=== PATIENT | female | born 1995 | race Caucasian/White ===

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

== ENCOUNTER 2019-01-05 22:34 | Emergency (ER) | payer BC, OTHER ==
[~2019-01-05] VITALS: Ht 157.5 cm; Wt 68.0 kg
[2019-01-05] MEDS ORDERED: LACTATED RINGERS 1,000 ML IV ONE (23:05)
[2019-01-05] MEDS ORDERED: KETOROLAC 30 MG/ML VIAL IVP ONE (23:15)
[2019-01-05] MEDS ORDERED: ONDANSETRON 4 MG/2 ML (SDV) Z0FRAN IVP ONE (23:15)
[2019-01-05 23:37] LABS: BASOPHILS % (AUTO) 0 % (0-10); EOSINOPHILS % (AUTO) 0 % (0-10); HEMATOCRIT 42 % (35-52); HEMOGLOBIN 13.8 G/DL (11.5-16.0); LYMPHOCYTES # (AUTO) 2.7 X 10^3 (1.0-4.0); LYMPHOCYTES % (AUTO) 34 % (12-44); MEAN CORPUSCULAR HEMOGLOBIN 29 PG (25-34); MEAN CORPUSCULAR HGB CONC 33 G/DL (32-36); MEAN CORPUSCULAR VOLUME 89 FL (80-99); MONOCYTES # (AUTO) 1.1 X 10^3 (0.0-1.0); MONOCYTES % (AUTO) 14 % (0-12); NEUTROPHILS # (AUTO) 4.2 X 10^3 (1.8-7.8); NEUTROPHILS % (AUTO) 52 % (42-75); PLATELET COUNT 312 10^3/uL (130-400)
[2019-01-05 23:56] LABS: ALANINE AMINOTRANSFERASE 10 U/L (0-55); ALBUMIN 4.3 GM/DL (3.2-4.5); ALKALINE PHOSPHATASE 71 U/L (40-136); BILIRUBIN,TOTAL 0.3 MG/DL (0.1-1.0); BUN/CREATININE RATIO 12; CALCIUM 9.5 MG/DL (8.5-10.1); CARBON DIOXIDE 25 MMOL/L (21-32); CHLORIDE 103 MMOL/L (98-107); CREATININE SERUM 0.81 MG/DL (0.60-1.30); GFR ESTIMATED > 60; GLUCOSE 97 MG/DL (70-105); POTASSIUM 3.5 MMOL/L (3.6-5.0); SODIUM 139 MMOL/L (135-145); TOTAL PROTEIN 8.1 GM/DL (6.4-8.2)
[2019-01-06] MEDS ORDERED: ONDA4TAB11 SL (00:09)
--- NOTE | 2019-01-06 00:10 | ED General ---
General Chief Complaint: Cough/Cold/Flu Symptoms Stated Complaint: SORE THROAT, EAR PAIN NAUSEA Nursing Triage Note: AMBULATORY TO ED ROOM 10 WITH C/O DIZZY, FULL EARS, SORE THROAT, COUGH SINCE LAST SUNDAY. SEEN PREVIOUSLY AT [facility] AND GIVEN AMOXICILLIN ANTIBIOTICS. TOOK IBUPROFEN YESTERDAY, NONE TODAY. STATES FEELS ACHY AND COLD TODAY. Nursing Sepsis Screen: Possible Sepsis Risk Source of Information: Patient Exam Limitations: No Limitations History of Present Illness Date Seen by Provider: Jan 05, 2019 Time Seen by Provider: 22:54 Initial Comments This 23-year-old young lady presents to the emergency room with complaints of flulike symptoms including myalgia, cough, sore throat, earaches, and nausea. She was seen in an outpatient clinic on the . She still is feeling ill and has fever. She is presently on amoxicillin. A flu swab was not performed in the clinic. She denies as she is currently on her menstrual cycle. Allergies and Home Medications Allergies Coded Allergies: morphine (Verified Adverse Reaction, Mild, SKIN HYPERSENSITIVITY, 08/14/11) Home Medications Cyclobenzaprine HCl 10 Mg Tablet, 10 MG PO Q8H PRN for SPASMS Prescribed by: JR SIMMONS on 07/24/15 2239 Nitrofurantoin Monohyd/M-Cryst 100 Mg Capsule, 100 MG PO BID Prescribed by: DANA TRAORE on 06/15/16 0155 Ondansetron 4 Mg Tab.rapdis, 4 MG SL Q4H PRN for NAUSEA/VOMITING Prescribed by: RONALD BAUTISTA on 01/06/19 0009 Patient Home Medication List Home Medication List Reviewed: Yes Review of Systems Review of Systems Constitutional: see HPI EENTM: see HPI Respiratory: see HPI Cardiovascular: other (tachycardia) Gastrointestinal: see HPI Genitourinary: no symptoms reported : No Musculoskeletal: see HPI Skin: no symptoms reported Psychiatric/Neurological: No Symptoms Reported Hematologic/Lymphatic: No Symptoms Reported Immunological/Allergic: no symptoms reported Past Uyuackq-Hfwjpi-Qdajyu Hx Past Med/Social Hx: Reviewed Nursing Past Med/Soc Hx Patient Social History Alcohol Use: Occasionally Uses Recreational Drug Use: No Smoking Status: Never a Smoker Recent Foreign Travel: No Contact w/Someone Who Travel: No Recent Infectious Disease Expo: No Recent Hopitalizations: No Physical Abuse: No Sexual Abuse: No Mistreated: No Fear: No Immunizations Up To Date PED Vaccines UTD: Yes Seasonal Allergies Seasonal Allergies: No Past Medical History Surgeries: Yes (SPINAL FUSION FROM T2 TO L2 FOR SCOLIOSIS) Orthopedic Respiratory: No Cardiac: No Neurological: Yes Headaches /Migraines Last Menstrual Period: Jan 02, 2019 Reproductive Disorders: No Gastrointestinal: Yes Gastroesophageal Reflux Musculoskeletal: Yes Scoliosis Endocrine: No Cancer: No Psychosocial: No Integumentary: No Blood Disorders: No Adverse Reaction/Blood Tranf: No Physical Exam Vital Signs Vital Signs - First Documented 01/05/19 22:52 Temp 100.4 Pulse 110 Resp 18 B/P (MAP) 134/95 (108) O2 Delivery Room Air Capillary Refill : Less Than 3 Seconds Height, Weight, BMI Height: 5'2" Weight: 150lbs. oz. 68.365172hi; 23.77 BMI Method:Stated General Appearance: No Apparent Distress, WD/WN HEENT: PERRL/EOMI, TMs Normal, Normal ENT Inspection, Pharyngeal Erythema Neck: Normal Inspection Respiratory: Lungs Clear, Normal Breath Sounds, No Accessory Muscle Use, No Respiratory Distress Cardiovascular: No Edema, No Murmur, Tachycardia Gastrointestinal: Normal Bowel Sounds, Non Tender, Soft Extremity: Normal Inspection, No Pedal Edema Neurologic/Psychiatric: Alert, Oriented x3, No Motor/Sensory Deficits, Normal Mood/Affect, emergency management director II-XII Norm as Tested Skin: Normal Color, Warm/Dry Progress/Results/Core Measures Suspected Sepsis Recent Fever Within 48 Hours: Yes Infection Criteria Present: Suspected New Infection New/Unexplained Altered Menta: No Sepsis Screen: Possible Sepsis Risk SIRS Temperature:100.4 Pulse: 110 Respiratory Rate: 18 Laboratory Tests 01/05/19 23:20: White Blood Count 8.0 Blood Pressure 134 /95 Mean: 108 Laboratory Tests 01/05/19 23:20: Creatinine 0.81, Platelet Count 312, Total Bilirubin 0.3 Results/Orders Lab Results Laboratory Tests Test 01/05/19 22:49 01/05/19 23:20 Range/Units Group A Streptococcus Screen NEGATIVE NEGATIVE White Blood Count 8.0 4.3-11.0 10^3/uL Red Blood Count 4.75 4.35-5.85 10^6/uL Hemoglobin 13.8 11.5-16.0 G/DL Hematocrit 42 35-52 % Mean Corpuscular Volume 89 80-99 FL Mean Corpuscular Hemoglobin 29 25-34 PG Mean Corpuscular Hemoglobin Concent 33 32-36 G/DL Red Cell Distribution Width 13.0 10.0-14.5 % Platelet Count 312 130-400 10^3/uL Mean Platelet Volume 10.0 7.4-10.4 FL Neutrophils (%) (Auto) 52 42-75 % Lymphocytes (%) (Auto) 34 12-44 % Monocytes (%) (Auto) 14 H 0-12 % Eosinophils (%) (Auto) 0 0-10 % Basophils (%) (Auto) 0 0-10 % Neutrophils # (Auto) 4.2 1.8-7.8 X 10^3 Lymphocytes # (Auto) 2.7 1.0-4.0 X 10^3 Monocytes # (Auto) 1.1 H 0.0-1.0 X 10^3 Eosinophils # (Auto) 0.0 0.0-0.3 10^3/uL Basophils # (Auto) 0.0 0.0-0.1 10^3/uL Sodium Level 139 135-145 MMOL/L Potassium Level 3.5 L 3.6-5.0 MMOL/L Chloride Level 103 98-107 MMOL/L Carbon Dioxide Level 25 21-32 MMOL/L Anion Gap 11 5-14 MMOL/L Blood Urea Nitrogen 10 7-18 MG/DL Creatinine 0.81 0.60-1.30 MG/DL Estimat Glomerular Filtration Rate > 60 BUN/Creatinine Ratio 12 Glucose Level 97 70-105 MG/DL Calcium Level 9.5 8.5-10.1 MG/DL Corrected Calcium 9.3 8.5-10.1 MG/DL Magnesium Level 2.0 1.6-2.4 MG/DL Total Bilirubin 0.3 0.1-1.0 MG/DL Aspartate Amino Transf (AST/SGOT) 16 5-34 U/L Alanine Aminotransferase (ALT/SGPT) 10 0-55 U/L Alkaline Phosphatase 71 40-136 U/L Total Protein 8.1 6.4-8.2 GM/DL Albumin 4.3 3.2-4.5 GM/DL Micro Results Microbiology 01/05/19 Influenza Types A,B Antigen (DEB) - Final, Complete My Orders Orders - RONALD PALAFOX MD Rapid Strep A Screen (01/05/19 22:54) Influenza A And B Antigens (01/05/19 22:54) Ketorolac Injection (Toradol Injection) (01/05/19 23:15) Ondansetron Injection (Zofran Injectio (01/05/19 23:15) Ed Iv/Invasive Line Start (01/05/19 23:05) Lactated Ringers (Lr 1000 Ml Iv Solution (01/05/19 23:05) Cbc With Automated Diff (01/05/19 23:33) Comprehensive Metabolic Panel (01/05/19 23:33) Magnesium (01/05/19 23:33) Vital Signs/I&O 01/05/19 01/05/19 22:52 22:52 Temp 100.4 Pulse 110 Resp 18 B/P (MAP) 134/95 (108) O2 Delivery Room Air Capillary Refill : Less Than 3 Seconds Blood Pressure Mean: 108 Progress Note : Progress Note Patient was feeling dry as she has been nauseated. She requested IV fluids and medications. A liter of LR was administered along with Zofran for nausea and Toradol for pain. She had significant improvement with these therapies. Rapid strep and influenza screens were negative. Patient declined chest x-ray for screening of pneumonia as she was already on antibiotics and had no chest discomfort. A prescription for Zofran was sent. Departure Impression Primary Impression: Flu-like symptoms Disposition: 01 HOME, SELF-CARE Condition: Improved Departure-Patient Inst. Decision time for Depature: 00:06 Referrals: [facility] (PCP) Primary Care Physician SELIN CREWS (Family) Primary Care Physician Patient Instructions: VIRAL SYNDROME Add. Discharge Instructions: Your symptoms are likely caused by a flulike virus. Complete your antibiotic as prescribed. You may use ibuprofen up to 600 mg every 6 hours as needed for fever or pain. You may additionally use Tylenol (acetaminophen) up to 1000 mg every 6 hours as needed. Drink plenty of clear liquids. Gradually advance your diet with small quantities of bland food as tolerated. You may use Zofran (ondansetron) as prescribed for nausea and vomiting. Call your doctor or return to the ER if you have worsening symptoms. All discharge instructions reviewed with patient and/or family. Voiced understanding. Scripts Ondansetron (Ondansetron Odt) 4 Mg Tab.rapdis 4 MG SL Q4H PRN for NAUSEA/VOMITING, #10 TAB Prov: RONALD PALAFOX MD 01/06/19 RONALD PALAFOX MD Jan 06, 2019 00:10
[2019-01-06 00:22] VITALS: BP 133/94
== END 2019-01-06 00:50 | disposition home or self-care (01) ==
LOC: EDUNIT# 22:34 → ER 22:38
DX: R05 Cough (principal); M79.10 Myalgia, unspecified site; G43.909 Migraine, unspecified, not intractable, without status migrainosus; K21.9 Gastro-esophageal reflux disease without esophagitis; Z88.5 Allergy status to narcotic agent; Z98.1 Arthrodesis status
CPT/HCPCS: 36415; 80053; 83735; 85025; 87430; 87804

== ENCOUNTER 2019-11-29 10:47 | Emergency (ER) | payer BC ==
[~2019-11-29 10:47] MED LIST changes: +ONDA4TAB11 SL
--- OUTSIDE RECORDS SUMMARY | 2019-11-29 10:52 | XMS REPORT ---
Author Author Sera Young Organization [facility] Address [address] [place] [address] Care Team Providers Care Jelly Maker Name Role Phone NAVI Young Unavailable PROBLEMS Type Condition ICD9-CM Code ECX69-HT Code Onset Dates Condition S tatus SNOMED Code Problem Migraines G43.909 Active 03723178 Problem Gastroesophageal reflux disease with esophagitis K 21.0 Active 047931073 Problem Chronic tension-type headache, intractable G44.221 Active 338964239 Problem Constipation K59.00 Active 1354845 8 Problem Insomnia G47.00 Active 957588008 Problem Cellulitis, unspecified cellulitis site L03.90 Active 718604170 Problem Major depressive disorder wi th single episode, remission status unspecified F32.9 Active 11666710 ALLERGIES No Information ENCOUNTERS Encounter Location Date Diagnosis [place] [address] [place] [id number] [place] [phone] Jun, [place] [address] [place] [id number] [place] [phone] May, Acute upper respiratory infe ction, unspecified J06.9 and Other viral agents as the cause of diseases classified elsewhere B97.89 [place] [address] [place] [id number] [place] [phone] May, [place] [address] [place] [id number] [place] [phone] Apr, [place] [address] [place] [id number] [place] [phone] Mar, [place] [address] [place] [id number] [place] [address] Mar, Encounter for Depo-Provera c ontraception Z30.42 [place] [id number] [facility] [id number] [address] [place] [phone] 10 Mar, 2016 [place] [address] [place] [id number] [place] [phone] Feb, [place] [address] [place] [id number] [place] [phone] Jan, Chronic tension-type headach e, intractable G44.221 and Major depressive disorder with single episode, remission status unspecified F32.9 [place] [address] [place] [id number] [place] [phone] Jan, Migraines G43.909 ; Chronic tension-type headache, intractable G44.221 ; Major depressive disorder with single episode, remission status unspecified F32.9 and Gastroesophageal reflux disease with esophagitis K21.0 [place] [address] [place] [id number] [place] [phone] Dec, Abnormal immunology findings R89.4 ; control counseling Z30.9 ; Migraines G43.909 ; Constipation K59.00 ; Cellulitis, unspecified cellulitis site L03.90 ; Encounter for immunization Z23 and Encounter for Depo-Provera contraception Z30.42 [place] [address] [place] [id number] [place] [phone] Mar, Migraines G43.909 ; Insomnia G47.00 and Constipation K59.00 [place] [id number] [place] [address] Aug, [place] [address] [place] [id number] [place] [phone] Aug, [place] [address] [place] [id number] [place] [phone] Apr, [place] [address] [place] [id number] [place] [phone] Apr, [place] [address] [place] [address] September, [facility] [address] [id number] [address] [place] [phone] September, [facility] [address] [id number] [address] [place] [phone] September, [facility] [address] [id number] [address] [place] [phone] September, [facility] [address] [id number] [address] [place] [phone] Aug, [facility] [address] [id number] [address] [place] [phone] Mar, [facility] [address] [id number] [address] [place] [phone] 17 Mar, 2012 [facility] [address] [id number] [address] [place] [phone] 15 Mar, 2012 [facility] [address] [id number] [address] [place] [phone] 15 Mar, 2012 [facility] [address] [id number] [address] [place] [phone] 15 Mar, 2012 [facility] [address] [id number] [address] [place] [phone] 15 Mar, 2012 [facility] [address] [id number] [address] [place] [phone] 10 Jun, 2009 IMMUNIZATIONS No Known Immunizations SOCIAL HISTORY Never Assessed REASON FOR VISIT PLAN OF CARE VITAL SIGNS MEDICATIONS Unknown Medications RESULTS No Results PROCEDURES Procedure Date Ordered Result Body Site TB INTRADERMAL TEST Apr 15, 2014 INSTRUCTIONS MEDICATIONS ADMINISTERED No Known Medications MEDICAL (GENERAL) HISTORY Type Description Date Medical History Insomnia Medical History Hx of strep in blood stream Surgical History Back surgery-Dr. Howard 2006
--- OUTSIDE RECORDS SUMMARY | 2019-11-29 10:52 | XMS REPORT | Clinical Summary ---
Author Author [facility] Organization [facility] Address Unknown Phone Unavailable Care Team Providers Care Signal Manager Name Role Phone Earle Ramirez MD Unavailable Self, Referral PCP Unavailable Source Comments Some departments are not documenting in the electronic medical record. If you d o not see the information that you expected, contact Release of Information in [facility] [employer] Information Management department at [phone] for further assistan ce in locating additional records.[facility] Allergies Comments Active Allergy Reactions Severity Noted Date Adhesive Tape BLISTERS 10/22/2008 Medications End Date Status Medication Sig Dispensed Refills Start Date Active clarithromycin (BIAXIN) Take 1 mg by 0 250 mg tablet mouth Twice Daily. Active fluticasone (FLOVENT HFA) Inhale 3 0 44 mcg/actuation inhaler Puffs by mouth Twice Daily. Active albuterol (PROAIR HFA) 90 Inhale 2 0 mcg/Actuation inhaler Puffs by mouth Every 6 Hours as needed for Wheezing. Active Calcium Carbonate Take 1 Cap by 0 (CALTRATE 600) 1,500 mouth Twice (600) mg Tab Daily. Active ASCORBIC ACID (VITAMIN C Take 1 Tab by 0 PO) mouth Twice Daily. Gummy Active DIMENHYDRINATE (DRAMAMINE Take by 0 PO) mouth As Needed. Active docusate (COLACE) 100 mg Take 1 Cap by 60 1 10/27/200 capsule mouth Twice 9 Daily. Active oxycodone SR (OXYCONTIN) Take 1 Tab by 30 0 10/27/200 10 mg tablet mouth Twice 9 Daily. Active oxycodone/acetaminophen Take 1-2 Tabs 100 0 10/27/200 (PERCOCET) 5/325 mg by mouth 9 tablet Every 4 Hours as needed for Pain. Active promethazine (PHENERGAN) Take 1 Tab by 30 1 12.5 mg tablet mouth Every 6 9 Hours as needed for Nausea. Active Problems Problem Noted Date Scoliosis 10/27/2008 Social History Date Tobacco Use Types Packs/Day Years Used Never Smoker Drinks/Week oz/Week Comments Alcohol Use No Sex Assigned at Date Recorded Not on file Industry Job Start Date Occupation Not on file Not on file Not on file Travel End Travel History Travel Start No recent travel history available. Last Filed Vital Signs Reading Time Taken Comments Vital Sign 104/70 10/27/2008 10:00 AM CDT Blood Pressure 109 10/27/2008 10:00 AM CDT Pulse 36.7 C (98.1 F) 10/27/2008 10:00 AM CDT Temperature - - Respiratory Rate 97% 10/27/2008 10:00 AM CDT Oxygen Saturation - - Inhaled Oxygen Concentration 48 kg (105 lb 13.1 oz) 10/23/2008 4:00 AM CDT Weight - - Height - - Body Mass Index Plan of Treatment Health Maintenance Due Date Last Done Comments HPV VACCINES (1 - 2-dose 02/16/2008 series) HIV SCREENING 02/16/2012 DTAP/TDAP VACCINES (1 - 2015 Tdap) HEPATITIS C SCREENING 2015 PHYSICAL (COMPREHENSIVE) 2015 EXAM CERVICAL CANCER SCREENING 2018 INFLUENZA VACCINE 02/05/2020 MENINGOCOCCAL VACCINE Aged Out No longer eligib le based on patient's age to ([facility]) complete this topic Results Not on filefrom Last 3 Months Advance Directives Patient Imaging Manager Explanation Type Date Recorded Advance 07/27/2015 4:04 PM Directive/DPOA
--- NOTE | 2019-11-29 12:59 | NUR ---
not in waiting room at this time
== END 2019-11-29 12:59 | disposition left against medical advice (07) ==
LOC: EDUNIT# 10:47 → ER 10:49
DX: M25.571 Pain in right ankle and joints of right foot (principal)

== ENCOUNTER 2020-10-05 13:53 | Emergency (ER) | payer BC, OTHER ==
[~2020-10-05] VITALS: Ht 157 cm; Wt 68.0 kg
--- NOTE | 2020-10-05 14:09 | ED Abdominal Pain ---
General Stated Complaint: ABD CT W/O CONTRAST Source of Information: Patient Exam Limitations: No Limitations History of Present Illness Date Seen by Provider: Oct 05, 2020 Time Seen by Provider: 14:07 Initial Comments To Er with c/o rlq pain sudden onset last night getting worse today. Had n/v today. Was at [facility] urgent care today and had outpatient CT abd/pelvis ordered but insurance required prior auth so she was referred to ER. No fevers. She states she received fluids, labs, zofran, toradol at [facility] urgent care prior to coming here. Timing/Duration: 1-2 Days Severity/Quality: Cramping Radiation: No Radiation Activities at Onset: None Associated Symptoms: Denies Symptoms Allergies and Home Medications Allergies Coded Allergies: morphine (Verified Adverse Reaction, Mild, SKIN HYPERSENSITIVITY, 08/14/11) Home Medications Cyclobenzaprine HCl 10 Mg Tablet, 10 MG PO Q8H PRN for SPASMS Prescribed by: JR SIMMONS on 07/24/152238 Nitrofurantoin Monohyd/M-Cryst 100 Mg Capsule, 100 MG PO BID Prescribed by: DANA TRAORE on 06/15/16 0155 Ondansetron 4 Mg Tab.rapdis, 4 MG SL Q4H PRN for NAUSEA/VOMITING Prescribed by: RONALD BAUTISTA on 01/06/19 0009 Patient Home Medication List Home Medication List Reviewed: Yes Review of Systems Review of Systems Constitutional: see HPI; No chills, No fever EENTM: No Symptoms Reported Respiratory: No Symptoms Reported Cardiovascular: No Symptoms Reported Gastrointestinal: See HPI, Abdominal Pain, Nausea Genitourinary: No Symptoms Reported Musculoskeletal: no symptoms reported Skin: no symptoms reported Psychiatric/Neurological: No Symptoms Reported Endocrine: No Symptoms Reported Hematologic/Lymphatic: No Symptoms Reported Past Lllopgs-Kjzpyu-Rytysz Hx Patient Social History Recent Hopitalizations: No Immunizations Up To Date PED Vaccines UTD: Yes Seasonal Allergies Seasonal Allergies: No Past Medical History Surgeries: Yes (SPINAL FUSION FROM T2 TO L2 FOR SCOLIOSIS) Orthopedic Respiratory: No Cardiac: No Neurological: Yes Headaches /Migraines Reproductive Disorders: No Gastrointestinal: Yes Gastroesophageal Reflux Musculoskeletal: Yes Scoliosis Endocrine: No Cancer: No Psychosocial: No Integumentary: No Blood Disorders: No Adverse Reaction/Blood Tranf: No Physical Exam Vital Signs Vital Signs - First Documented 10/05/20 14:01 Temp 35.7 Pulse 84 Resp 16 B/P (MAP) 125/98 (107) Pulse Ox 99 O2 Delivery Room Air Capillary Refill : Height/Weight/BMI Height: 5'2" Weight: 150lbs. oz. 68.481212zn; 23.77 BMI Method:Stated General Appearance: WD/WN, no apparent distress HEENT: PERRL/EOMI, normal ENT inspection Neck: non-tender, full range of motion Respiratory: no respiratory distress, no accessory muscle use Gastrointestinal: normal bowel sounds, soft, tenderness Extremities: normal range of motion, non-tender Neurologic/Psychiatric: alert, normal mood/affect, oriented x 3 Skin: normal color, warm/dry Progress/Results/Core Measures Results/Orders Lab Results Laboratory Tests Test 10/05/20 14:20 Range/Units Urine Color YELLOW Urine Clarity CLOUDY Urine pH 6.0 5-9 Urine Specific Man >=1.030 1.016-1.022 Urine Protein TRACE H NEGATIVE Urine Glucose (UA) NEGATIVE NEGATIVE Urine Ketones TRACE H NEGATIVE Urine Nitrite NEGATIVE NEGATIVE Urine Bilirubin NEGATIVE NEGATIVE Urine Urobilinogen 0.2 < = 1.0 MG/DL Urine Leukocyte Esterase 2+ H NEGATIVE Urine RBC (Auto) NEGATIVE NEGATIVE Urine RBC NONE /HPF Urine WBC 10-25 H /HPF Urine Squamous Epithelial Cells 10-25 H /HPF Urine Crystals PRESENT H /LPF Urine Amorphous Sediment MOD [place] URATES H /LPF Urine Bacteria TRACE /HPF Urine Casts NONE /LPF Urine Mucus MODERATE H /LPF Urine Culture Indicated YES My Orders Orders - GRUPO VIERA APRN Ct Abd/Pelvis Wo(Kidney Stone) (10/05/20 14:04) Cbc With Automated Diff (10/05/20 14:09) Ua Culture If Indicated (10/05/20 14:09) Basic Metabolic Panel (10/05/20 14:09) Ed Iv/Invasive Line Start (10/05/20 14:09) Urine Culture (10/05/20 14:20) Vital Signs/I&O 10/05/20 14:01 Temp 35.7 Pulse 84 Resp 16 B/P (MAP) 125/98 (107) Pulse Ox 99 O2 Delivery Room Air Diagnostic Imaging Diagonstic Imaging: CT Comments NAME: PUJA ANDERSEN [facility] REC#: [id number] PT STATUS: REG ER : 1995 PHYSICIAN: GRUPO VIERA ASSISTANT GM OF CONTENT & DELIVERY ADMIT DATE: 10/05/20/ER Draft Date of Exam:10/05/20 CT ABD/PELVIS WO(KIDNEY STONE) PROCEDURE: CT urinary tract, rule out kidney stone. TECHNIQUE: Multiple contiguous axial images were obtained through the abdomen and pelvis without the use of intravenous contrast. Auto Exposure Controls were utilized during the CT exam to meet ALARA standards for radiation dose reduction. INDICATION: History of nephrolithiasis, right lower quadrant pain. I have no previous for comparison. FINDINGS: Air-containing appendix laterally best seen in the coronal reconstructions that appeared normal. There is an elevated fecal load diffusely without focal impaction or small bowel dilatation. No obstruction. Small volume pelvic free fluid is in the cul-de-sac likely within normal physiologic limits of female patient of this age. Liver, gallbladder, bile ducts, spleen, adrenals and pancreas unremarkable. There is no hydroureteronephrosis and there are no radiopaque urinary tract stones. No perinephric or periureteric edema. The lung bases in the bony structures nonacute. Some mild induration of the subcutaneous fat in the bilateral buttocks which may be from percutaneous injections. There are scoliotic and postsurgical changes to the spine. Lung bases nonacute. IMPRESSION: Normal appendix. Unobstructed nonfocal urinary tracts. Small volume pelvic free fluid believed physiologic with mildly elevated colonic fecal load but no focal impaction or obstruction. Dictated on workstation # [id number] Dict: 10/05/20 1433 Trans: 10/05/20 1449 [id number] Interpreted by: SIAIAH RODRIGUEZ Electronically signed by: Departure Communication (Admissions) 7230-I received the labs from [facility], normal chemistry. White count of 6.6 with a normal differential, 71% neutrophils. Impression Primary Impression: UTI (urinary tract infection) Disposition: HOME, SELF-CARE Condition: Stable Departure-Patient Inst. Decision time for Depature: 14:59 Referrals: NO,LOCAL PHYSICIAN (PCP) Primary Care Physician BISI CHISHOLM (Family) Primary Care Physician Patient Instructions: Urinary Tract Infection, Adult (DC) Add. Discharge Instructions: 1. Return to ER for any concerns 2. Follow-up with your doctor next week 3. Scripts Sulfamethoxazole/Trimethoprim (Bactrim Ds Tablet) 1 Each Tablet 1 EACH PO BID, #10 TAB Prov: GRUPO VIERA APRN 10/05/20 Ondansetron (Ondansetron Odt) 8 Mg Tab.rapdis 8 MG PO Q6H PRN for NAUSEA/VOMITING, #10 TAB Prov: GRUPO VIERA APRN 10/05/20 GRUPO VIERA APRN Oct 05, 2020 14:09
[2020-10-05 14:24] LABS: BILIRUBIN,URINE NEGATIVE (NEGATIVE); CLARITY,URINE CLOUDY; COLOR,URINE YELLOW; GLUCOSE, URINE (UA) NEGATIVE (NEGATIVE); KETONES,URINE TRACE (NEGATIVE); LEUKOCYTE ESTERASE ,URINE 2+ (NEGATIVE); NITRITE,URINE NEGATIVE (NEGATIVE); PROTEIN,URINE TRACE (NEGATIVE)
[2020-10-05 14:39] LABS: BACTERIA,URINE TRACE /HPF
[2020-10-05 14:40] LABS: AMORPHOUS SEDIMENT,UR MOD AMOR URATES /LPF
--- NOTE | 2020-10-05 14:50 | Diagnostic Imaging Report ---
PROCEDURE: CT urinary tract, rule out kidney stone. TECHNIQUE: Multiple contiguous axial images were obtained through the abdomen and pelvis without the use of intravenous contrast. Auto Exposure Controls were utilized during the CT exam to meet ALARA standards for radiation dose reduction. INDICATION: History of nephrolithiasis, right lower quadrant pain. I have no previous for comparison. FINDINGS: Air-containing appendix laterally best seen in the coronal reconstructions that appeared normal. There is an elevated fecal load diffusely without focal impaction or small bowel dilatation. No obstruction. Small volume pelvic free fluid is in the cul-de-sac likely within normal physiologic limits of female patient of this age. Liver, gallbladder, bile ducts, spleen, adrenals and pancreas unremarkable. There is no hydroureteronephrosis and there are no radiopaque urinary tract stones. No perinephric or periureteric edema. The lung bases in the bony structures nonacute. Some mild induration of the subcutaneous fat in the bilateral buttocks which may be from percutaneous injections. There are scoliotic and postsurgical changes to the spine. Lung bases nonacute. IMPRESSION: Normal appendix. Unobstructed nonfocal urinary tracts. Small volume pelvic free fluid believed physiologic with mildly elevated colonic fecal load but no focal impaction or obstruction. Dictated by: Dictated on workstation # [id number]
[2020-10-05] MEDS ORDERED: SULF1TAB35 PO (15:00)
[2020-10-05] MEDS ORDERED: ONDA8TAB13 PO (15:00)
[2020-10-05 15:05] VITALS: BP 96/70
== END 2020-10-05 15:05 | disposition home or self-care (01) ==
LOC: EDUNIT# 13:53 → ER 13:55
DX: N39.0 Urinary tract infection, site not specified (principal)
CPT/HCPCS: 74176; 81000; 84703; 87088

== ENCOUNTER → 2021-08-29 | Outpatient (CLI) | payer OTHER ==
[~2021-08-29] MED LIST changes: +CYCL10TA25 PO; -CYCL10TA9 PO; +ONDA8TAB13 PO; +SULF1TAB38 PO
== END ==
LOC: LABNPT 16:42
PROVIDERS: ATTEND Obstetrics & Gynecology
DX: N92.6 Irregular menstruation, unspecified (principal); N89.8 Other specified noninflammatory disorders of vagina
CPT/HCPCS: 83001; 83002; 84146; 84443

== ENCOUNTER 2021-09-23 07:04 | Outpatient (CLI) | payer BC ==
[~2021-09-23] VITALS: Ht 157.5 cm; Wt 65.9 kg
[2021-09-26] MEDS ORDERED: CLOM50TA18 PO (09:13)
== END 2021-09-26 09:25 ==
LOC: PREOP 07:04
PROVIDERS: ATTEND Obstetrics & Gynecology
DX: Z01.818 Encounter for other preprocedural examination (principal); N83.209 Unspecified ovarian cyst, unspecified side; D64.9 Anemia, unspecified

== ENCOUNTER 2021-09-30 10:49 | Day surgery (SDC) | payer BC ==
[~2021-09-30] VITALS: Ht 157.5 cm; Wt 65.9 kg
[2021-09-30] VITALS (11 sets, daily range): BP systolic 91–129; BP diastolic 61–98
[~2021-09-30 10:49] MED LIST changes: +CLOM50TA18 PO
[2021-09-30] MEDS ORDERED: ceFAZolin INJECTION 1,000 MG VIAL IV ONE (11:15)
[2021-09-30] MEDS ORDERED: SEVOFLURANE (ULTANE) 15 ML INHAL SOLN ONE ×2 (11:37→14:05)
[2021-09-30] MEDS ORDERED: ONDANSETRON 4 MG/2 ML (SDV) Z0FRAN ONE ×3 (11:37→16:26)
[2021-09-30] MEDS ORDERED: fentaNYL INJ 100 MCG/2 ML AMP ONE ×2 (11:37→13:16)
[2021-09-30] MEDS ORDERED: LIDOCAINE PF 2% 5 ML (XYLOCAINE) VIAL ONE (11:37)
[2021-09-30] MEDS ORDERED: MIDAZOLAM 2 MG/2 ML (VERSED) VIAL ONE (11:37)
[2021-09-30] MEDS ORDERED: proPOfol 200 MG/20 ML (DIPRIVAN) VIAL IV ONE (11:37)
[2021-09-30 11:45] LABS: BASOPHILS # (AUTO) 0.1 10^3/uL (0.0-0.1); BASOPHILS % (AUTO) 1 % (0-10); EOSINOPHILS % (AUTO) 0 % (0-10); HEMATOCRIT 40 % (35-52); HEMOGLOBIN 13.4 g/dL (11.5-16.0); LYMPHOCYTES # (AUTO) 2.8 10^3/uL (1.0-4.0); LYMPHOCYTES % (AUTO) 29 % (12-44); MEAN CORPUSCULAR HEMOGLOBIN 30 pg (25-34); MEAN CORPUSCULAR HGB CONC 33 g/dL (32-36); MEAN CORPUSCULAR VOLUME 90 fL (80-99); MEAN PLATELET VOLUME 9.8 fL (9.0-12.2); MONOCYTES # (AUTO) 0.6 10^3/uL (0.0-1.0); MONOCYTES % (AUTO) 6 % (0-12); NEUTROPHILS # (AUTO) 6.1 10^3/uL (1.8-7.8); NEUTROPHILS % (AUTO) 64 % (42-75); PLATELET COUNT 295 10^3/uL (130-400); WHITE BLOOD COUNT 9.6 10^3/uL (4.3-11.0)
[2021-09-30] MEDS ORDERED: LIDOCAINE/EPI 2% 1:200,00 (XYLOCAINE) 20 ML VIAL ONE (12:15)
[2021-09-30] MEDS ORDERED: INDIGO CARMINE 8 MG/ML 5 ML AMP ONE (12:58)
[2021-09-30] MEDS ORDERED: ROCURONIUM 50 MG/5 ML (ZEMURON) VIAL IV ONE (14:05)
--- NOTE | 2021-09-30 14:15 | Anesthesia-General Post-Op ---
General Patient Condition Mental Status/LOC: Same as Preop Cardiovascular: Satisfactory Nausea/Vomiting: Absent Respiratory: Satisfactory Pain: Controlled Complications: Absent Post Op Complications Complications None Follow Up Care/Instructions Patient Instructions None needed. Anesthesia/Patient Condition Patient Condition Patient is doing well, no complaints, stable vital signs, no apparent adverse anesthesia problems. No complications reported per nursing. EVANGELINA RUTH CRNA September 30, 2021 14:15
[2021-09-30] MEDS: ONDANSETRON 4 MG/2 ML (SDV) Z0FRAN IVP PRN ×2 (14:34→15:17)
[2021-09-30] MEDS ORDERED: HYDROmorphone 2 MG/ML VIAL (DILAUDID) ONE (14:36)
[2021-09-30] MEDS ORDERED: OXYC-199 PO (14:39)
[2021-09-30] MEDS ORDERED: DOCU-143 PO (14:39)
[2021-09-30] MEDS ORDERED: IBUP-1780 PO (14:39)
--- NOTE | 2021-09-30 14:41 | Discharge Inst-Surgical ---
Discharge Inst-Surgical Depart Medication/Instructions New, Converted or Re-Newed RX: Transmitted to Pharmacy Consults/Follow Up Orders & Referrals Follow Up Appt: Call to make follow up appt. for patient in 1 weeks. Activity: Rest for 24 hours, than as tolerated. Wound Care: May remove Band-Aid tomorrow. Replace as desired. Keep incisions clean and dry. Wash daily with soap and water. Diet: As tolerated may shower or tub bathe as desired. No driving for 24 hours, no alcoholic beverages for 24 hours, and nothing per vagina (no tampons, douching, or intercoarse) for 2 weeks. Patient to return to the clinic as soon as possible for: Temperature greater than 101F, Severe Pain, Foul discharge from incision or vagina, Excessive Bleeding (more than a period). Activity Activity as Tolerated: No Diet Discharge Diet: No Restrictions SCOT DELGADILLO MD September 30, 2021 14:41
--- NOTE | 2021-09-30 14:44 | Progress Note-Pre Operative ---
Pre-Operative Progress Note H&P Reviewed The H&P was reviewed, patient examined and no changes noted. Date Seen by Provider: September 30, 2021 Time Seen by Provider: 12: Date H&P Reviewed: September 30, 2021 Time H&P Reviewed: 12:31 Pre-Operative Diagnosis: Abnormal uterine bleeding/menorrhagia/chronic pelvic pain SCOT DELGADILLO MD September 30, 2021 14:44
[2021-09-30] MEDS ORDERED: HYDROmorphone 2 MG/ML VIAL (DILAUDID) IV ONE (14:45)
[2021-09-30] MEDS ORDERED: KETOROLAC 30 MG/ML VIAL IVP ONE (14:45)
[2021-09-30] MEDS ORDERED: PROMETHAZINE INJ 25 MG/ML (PHENERGAN) AMP IVP ONE (14:45)
[2021-09-30] MEDS ORDERED: LACTATED RINGERS 1,000 ML IV PRN (14:45)
[2021-09-30] MEDS ORDERED: D5 LR IV SOLUTION 1,000 ML IV SCH (14:45)
[2021-09-30] MEDS ORDERED: fentaNYL INJ 100 MCG/2 ML AMP IVP ONE (14:45)
[2021-09-30] MEDS ORDERED: fentaNYL INJ 100 MCG/2 ML AMP IVP PRN (14:45)
[2021-09-30] MEDS ORDERED: oxyCODONE/APAP 5/325MG (PERCOCET 5) TABLET PO PRN (14:45)
[2021-09-30] MEDS ORDERED: ONDANSETRON 4 MG/2 ML (SDV) Z0FRAN IVP PRN (14:45)
--- NOTE | 2021-09-30 14:47 | Progress Note-Post Operative ---
Post-Operative Progess Note Surgeon (s)/Communications Designer (s) Surgeon SCOT DELGADILLO MD Communications Designer: Natalee Pre-Operative Diagnosis Abnormal uterine bleeding/menorrhagia/chronic pelvic pain Post-Operative Diagnosis Same with endometriosis and with abnormal appendix/appendicitis and with bilateral tubal obstruction Procedure & Operative Findings Date of Procedure 09/30/21 Procedure Performed/Findings D&C/laparoscopy for destruction of endometriosis implants/aspiration of ovarian cyst/laparoscopic appendectomy/chromopertubation Anesthesia Type General Estimated Blood Loss Estimated blood loss (mL): Minimal Specimens/Packing Specimens Removed Endometrial curettings/appendix SCOT DELGADILLO MD September 30, 2021 14:46
[2021-09-30] MEDS ORDERED: KETOROLAC 30 MG/ML VIAL ONE (15:21)
[2021-09-30] MEDS ORDERED: HYDROcodone/APAP 5 MG/325 MG (LORTAB) TAB ONE (15:31)
[2021-09-30] MEDS ORDERED: oxyCODONE/APAP 5/325MG (PERCOCET 5) TABLET ONE (15:34)
[2021-09-30] MEDS ORDERED: ONDANSETRON 4 MG/2 ML (SDV) Z0FRAN IVP ONE (16:30)
--- NOTE | 2021-09-30 23:43 | OPERATIVE REPORT ---
DATE OF SERVICE: 09/30/2021 PREOPERATIVE DIAGNOSES: Menorrhagia/dysfunctional uterine bleeding/chronic pelvic pain. POSTOPERATIVE DIAGNOSES: Menorrhagia/dysfunctional uterine bleeding/chronic pelvic pain with endometriosis and with appendicitis and with bilateral tubal obstruction. OPERATIVE DESCRIPTION: With the patient in the supine position under satisfactory general anesthesia, she was repositioned in the dorsal lithotomy position in the [facility] and prepped and draped in the usual fashion for abdominal and vaginal surgery. Urinary bladder was emptied with a straight catheter. A weighted speculum was placed in posterior fornix of vagina, cervix exposed and grasped anteriorly with single tooth tenaculum. The uterus was sounded to 9.5 cm with uterine sound. The cervix was then serially dilated with Dwight dilators to a #20 Dwight and then a #9 Hegar dilator was the final step in dilation. The endometrial cavity was sharply curettaged in all 4 quadrants to good uterine cry. That tissue was sent to pathology as endometrial curettings for permanent section. A uterine manipulator was placed and the bulb filled with 4 mL of air. The tenaculum and speculum were removed and the patient brought in low dorsal lithotomy position. A 5 mm incision was made in the patient's left upper quadrant. Veress needle was placed through that incision into the abdominal cavity. Correct placement confirmed with water drop test. The abdomen was insufflated with 2.4 liters of carbon dioxide. The Veress needle was removed and a 5 mm Optiview laparoscopic port was placed through that incision into the abdominal cavity. The laparoscope was introduced. The abdomen was examined. The abdominal wall was transilluminated. The patient was placed in Trendelenburg and a 12 mm port placed through an incision of that size in the inferior margin of the umbilicus and a 5 mm port superior to the pubic symphysis. Both ovaries were somewhat normal appearing but had numerous cysts. The right ovary had a large simple cyst and two other small and the left ovary had what appeared to be a corpus luteal cyst that was resolving plus 2 other small simple appearing cyst. There was an endometriosis implant in the left ovarian fossa at the junction of the uterosacral ligament with the lower uterine segment. There was endometriosis implanted in the base of the cul-de-sac and another one in the right ovarian fossa. The uterus itself looked normal. It was somewhat mottled possibly consistent with adenomyosis. Both fallopian tubes were somewhat tortuous, but otherwise normal. Both the fimbriated ends were relatively normal in appearance. The laparoscope was rotated. The appendix was identified. It was firm and indurated and injected consistent with an appendicitis. Laparoscope was brought back to the pelvis. A dilute solution of indigo carmine was instilled through the uterine manipulator to assess the patency of the tubes with a fairly vigorous pressure. No spill could be accomplished through the fallopian tubes. It appeared consistent with bilateral tubal obstruction. The endometriosis implants that were previously noted were touched with electrocautery to destroy them. The cyst on both ovaries were fenestrated with cautery allowing release of straw colored fluid from each fluid was aspirated out of the pelvis. The pelvis was now copiously irrigated and examined for hemostasis; that being complete with no remaining abnormal pathology, attention was turned to the appendix. The appendix was grasped and elevated. Again, it was quite indurated, quite irregular and quite injected. The mesoappendix was divided over to the base of the appendix with electrocautery ensuring hemostasis along the way. The Endo-HARRY was then placed across the base of appendix and fired, severing the appendix from its attachment. The appendix was placed in an Endobag and brought out through the umbilical port, sent to pathology for permanent section. The stump of the appendix was copiously irrigated and irrigant was aspirated out. The pelvis was examined final time for hemostasis and for abnormal pathology there being none and hemostasis being complete, the irrigant was aspirated out. The stump of the appendix was treated with several drops of Betadine solution. At this point, the procedure was terminated. Operative were removed under direct vision as were the ports. The abdomen was evacuated of the insufflating gas in the process of removing the ports. The skin incisions were then closed with nylon sutures. The fascia at the infraumbilical incision was closed with a [id number] suture of 2-0 Vicryl. The uterine manipulator bulb was emptied and the instrument was removed from the uterus and from the vagina. Speculum was placed in the vagina, cervix exposed for hemostasis and examined for hemostasis, which was complete. There was no bleeding from the puncture sites and no bleeding from the cervical os. Sponge and needle counts were correct. Blood loss was minimal. The patient was now uneventfully awakened from her general anesthesia and transferred to recovery room in stable condition with plans for discharge home PAR. Job ID: [id number] DocumentID: [id number] Dictated Date: 09/30/2021 15:07:44 Department Manager Date: 09/30/2021 23:42:50 Dictated By: SCOT DELGADILLO MD
== END 2021-09-30 17:05 | disposition home or self-care (01) ==
LOC: SDC 10:49
PROVIDERS: ATTEND Obstetrics & Gynecology
DX: K37 Unspecified appendicitis (principal); N80.9 Endometriosis, unspecified; N92.0 Excessive and frequent menstruation with regular cycle; K38.0 Hyperplasia of appendix; N97.1 Female infertility of tubal origin; G89.29 Other chronic pain; R10.2 Pelvic and perineal pain; N93.8 Other specified abnormal uterine and vaginal bleeding; N83.202 Unspecified ovarian cyst, left side; N83.201 Unspecified ovarian cyst, right side
CPT/HCPCS: 36415; 84703; 85025; 87081; 88304; 88305

== ENCOUNTER → 2022-01-29 | Outpatient (CLI) | payer BC ==
[~2022-01-29] MED LIST changes: +DOCU-143 PO; +IBUP-1780 PO; +OXYC-199 PO
== END ==
LOC: LAB 09:31
PROVIDERS: ATTEND Obstetrics & Gynecology
DX: Z36.89 Encounter for other specified antenatal screening (principal)
CPT/HCPCS: 36415; 84702

== ENCOUNTER 2022-03-21 12:44 | Emergency (ER) | payer BC, MEDICAID ==
[~2022-03-21] VITALS: Ht 157.5 cm; Wt 68.0 kg
[2022-03-21 12:49] VITALS: BP 136/106
[2022-03-21] MEDS ORDERED: FAMOTIDINE 20 MG (PEPCID) TABLET PO ONE (13:30)
--- NOTE | 2022-03-21 13:31 | ED Respiratory ---
General Chief Complaint: OB < 20 WEEKS Stated Complaint: COUGH|VOMITING Nursing Triage Note: PT AMB TO ED BY POV WITH C/ COUGH AND N/V X MONTH. PT REPORTS SHE HAS HAD SOME DIZZINESS OVER THE LAST COUPLE OF DAYS. PT IS 13 WKS . PT CRYING AND APPEARS VERY ANXIOUS. Source: patient Exam Limitations: no limitations History of Present Illness Date Seen by Provider: Mar 21, 2022 Time Seen by Provider: 13:18 Initial Comments 27-year-old G1, P0 presents to the emergency room with a chief complaint of persistent cough over the last month. Approximately 13 weeks . Patient states that her cough is worse in the morning and then in the evening. She states she can eat, approximately an hour later will start to have a cough and then coughed to the point of vomiting. She denies pain. She denies URI symptoms. No fevers or chills. 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 She did mention to her EVENT MARKETING COORDINATOR her cough at the last visit however they did not add any medications. She does take occasional acid campaign fundraiser Gummies. She is very tearful and upset. She states she cannot sleep at night due to the coughing. All other review of systems reviewed and negative except as stated Timing/Duration: other (constant, 1 month) Severity: moderate Associated Symptoms: cough, other (vomiting) Allergies and Home Medications Allergies Coded Allergies: morphine (Verified Adverse Reaction, Mild, SKIN HYPERSENSITIVITY, 09/26/21) Patient Home Medication List Home Medication List Reviewed: Yes Clomiphene Citrate (Clomiphene Citrate) 50 Mg Tablet, 50 MG PO DAILY, (Reported) Entered as Reported by: FAITH BARRIENTOS on 09/26/21 0913 Docusate Sodium (Colace) 100 Mg Capsule, 100 MG PO BID Prescribed by: SCOT DOTSON on 09/30/21 1439 Ibuprofen (Ibuprofen) 800 Mg Tablet, 800 MG PO Q6H PRN for PAIN Prescribed by: SCOT DOTSON on 09/30/21 1439 Review of Systems Review of Systems Constitutional: see HPI EENTM: no symptoms reported Respiratory: cough Cardiovascular: no symptoms reported Gastrointestinal: vomiting Genitourinary: no symptoms reported : Yes Expected Date of Delivery: September 26, 2022 Musculoskeletal: no symptoms reported Skin: no symptoms reported Psychiatric/Neurological: No Symptoms Reported All Other Systems Reviewed Negative Unless Noted: Yes Past [place]-Hfmiic Hx Patient Social History Tobacco Use?: No Use of E-Cig and/or Vaping dev: No Substance use?: No Alcohol Use?: No Pt feels they are or have been: No Immunizations Up To Date PED Vaccines UTD: Yes Influenza Vaccine Up-to-Date: No; Not Current First/Initial COVID19 Vaccinat: 06/11/2020 Second COVID19 Vaccination Hira: 07/02/2020 Third COVID19 Vaccination Date: 05/12/21 MODERNA COVID19 Vaccine Damper Maker: [facility] Seasonal Allergies Seasonal Allergies: Yes Past Medical History Surgery/Hospitalization HX: SPINAL FUSION, DNC, APPENDECTOMY Surgeries: Yes (SPINAL FUSION FROM T2 TO L2 FOR SCOLIOSIS) Orthopedic Respiratory: Yes (EXERCISE INDUCED) Asthma Currently Using CPAP: No Currently Using BIPAP: No Cardiac: No Neurological: Yes Headaches /Migraines Expected Date of Delivery: September 26, 2022 Reproductive Disorders: No Female Reproductive Disorders: Denies Sexually Transmitted Disease: No HIV/AIDS: No Genitourinary: No Gastrointestinal: Yes Gastroesophageal Reflux, Chronic Constipation Musculoskeletal: Yes Scoliosis Endocrine: No Cancer: No Psychosocial: No Integumentary: No Blood Disorders: No Adverse Reaction/Blood Tranf: No Physical Exam Vital Signs - First Documented 03/21/22 12:49 Temp 36.8 Pulse 106 Resp 20 B/P (MAP) 136/106 (116) Pulse Ox 98 O2 Delivery Room Air Capillary Refill : Less Than 3 Seconds Height: 5'2" Weight: 150lbs. oz. 68.823361cb; 27.00 BMI Method:Stated General Appearance: WD/WN, mild distress (tearful/anxious) HEENT: PERRL/EOMI, pharynx normal (appears well hydrated) Neck: normal inspection Respiratory: lungs clear, normal breath sounds, no respiratory distress, no accessory muscle use Cardiovascular: regular rate, rhythm Gastrointestinal: normal bowel sounds, non tender, soft Extremities: normal range of motion, non-tender, normal inspection, no pedal edema, no calf tenderness Neurologic/Psychiatric: alert, normal mood/affect, oriented x 3 Skin: normal color, warm/dry Progress/Results/Core Measures Suspected Sepsis SIRS Temperature: Pulse: 106 Respiratory Rate: 20 Blood Pressure 136 /106 Mean: 116 Results/Orders Lab Results Laboratory Tests Test 03/21/22 13:05 Range/Units My Orders Orders - BISI NETTELS MD Covid 19 Inhouse Test (03/21/22 13:03) Influenza A And B By Pcr (03/21/22 13:03) Isolation Central Supply Req (03/21/22 13:03) Heart Tones (03/21/22 13:26) Famotidine Tablet (Pepcid Tablet) (03/21/22 13:30) Vital Signs/I&O 03/21/22 12:49 Temp 36.8 Pulse 106 Resp 20 B/P (MAP) 136/106 (116) Pulse Ox 98 O2 Delivery Room Air Capillary Refill : Less Than 3 Seconds Blood Pressure Mean: 116 Progress Note : Time: 13:38 Progress Note Patient seen and evaluated, 27-year-old with persistent cough. Evaluation today includes a physical exam. She is quite tearful and upset. heart tones obtained. Considerations for other causes of cough to include pneumonia, acute pulmonary pathology such as pneumothorax, PE. These are not supported by history, physical exam or vital signs. No lab work was done at this ED visit. No clinical indications for lab work to be done. Recommendations for Pepcid tjoq-nur-yrjesnu 20 mg twice daily. Would advise her to avoid eating late at night just before bed. Close follow-up with her OB provider. Return precautions. Departure Impression Primary Impression: Cough Qualified Codes: R05.3 - Chronic cough Additional Impressions: Post-tussive emesis Qualified Codes: Z3A.13 - 13 weeks gestation of Disposition: 01 HOME, SELF-CARE Condition: Stable Departure-Patient Inst. Decision time for Depature: 13:39 Referrals: NO,LOCAL PHYSICIAN (PCP) Primary Care Physician BISI CHISHOLM (Family) Primary Care Physician SCOT DELGADILLO MD Patient Instructions: Acid Reflux (Gastroesophageal Reflux Disease) During Add. Discharge Instructions: Start taking over the counter generic pepcid, 20mg twice a day. You can take another dose tonight before bed. Drink plenty of fluids to stay well hydrated. Avoid eating a large meal 2-3 hours before bed. You can continue to supplement heartburn symptoms with over the counter TUMS. Keep your scheduled follow up with your OB provider. Return to the Emergency Department for any new, concerning or emergent complaints. Work/School Note: Work Release Form Date Seen in the Emergency Department: Mar 21, 2022 Return to Work: Mar 22, 2022 Copy Copies To 1: SCOT DELGADILLO MD, KATHRYN M MD Mar 21, 2022 13:31
== END 2022-03-21 13:59 | disposition home or self-care (01) ==
LOC: EDUNIT# 12:44 → ER 12:47
DX: O99.511 Diseases of the respiratory system complicating pregnancy, first trimester (principal); O21.9 Vomiting of pregnancy, unspecified; R05.3 Chronic cough; Z3A.13 13 weeks gestation of pregnancy; Z87.09 Personal history of other diseases of the respiratory system; Z20.822 Contact with and (suspected) exposure to COVID-19
CPT/HCPCS: 87636; 99283

== ENCOUNTER → 2022-04-24 | Outpatient (CLI) | payer MEDICAID ==
--- NOTE | 2022-04-24 20:07 | Diagnostic Imaging Report ---
INDICATION: anatomy survey TECHNIQUE: Multiple real-time grayscale images were obtained over the gravid uterus. COMPARISON: None FINDINGS: Cervix measures 3.9 cm in length. Placenta is anteriorly positioned and there is no previa, as the tip of the uterus is 4.8 cm cranial to the internal cervical os. LADAN is normal at 13.45 cm. Maternal adnexa are not well evaluated due to advanced gestational age. Following anatomy structures are visualized and normal: Stomach, four-chamber heart, left ventricular outflow tract, right ventricular outflow tract, urinary bladder three-vessel cord, umbilical cord insertion, bilateral lower extremities, kidneys, cerebellum, cisterna magna, cerebral ventricles, spine, and profile. Biometrical measurements are as follows: Biparietal 4.26 cm, age 19 weeks 0 days. Head circumference 16.45 cm, age 19 weeks 2 days. Abdominal circumference 12.60 cm, age 18 weeks 2 days. Femur length 2.74 cm, age 18 weeks 3 days. Sonographic estimate age: 18 weeks 6 days. Sonographic estimated date of delivery: 09/19/2022. Estimated Weight: 237 gm (+/- 35 gm). LMP percentile: 78%. heart rate: 152 beats per minute. number: 1 of 1. IMPRESSION: 1. Single live intrauterine has normal anatomy survey. Dictated by: Dictated on workstation # [id number]
== END ==
LOC: RAD 15:00
PROVIDERS: ATTEND Obstetrics & Gynecology
DX: Z34.82 Encounter for supervision of other normal pregnancy, second trimester (principal)
CPT/HCPCS: 76805

== ENCOUNTER 2022-06-25 13:16 | Outpatient (CLI) | payer MEDICAID ==
[~2022-06-25] VITALS: Ht 158.8 cm; Wt 74.5 kg
[2022-06-25 13:21] VITALS: BP 127/83
[2022-06-25 13:30] VITALS: BP 127/83
[2022-06-25 14:25] VITALS: BP 114/70
--- NOTE | 2022-06-25 15:06 | Antepartum Progress Note ---
Antepartum Progress Antepartum Progress Date Seen by Provider: Jun 25, 2022 Time Seen by Provider: 14:30 Subjective: 27yo G1 at 26wks presents with no movement since Sunday. She has been feeling sick all week, but had negative swabs in the clinic for flu, strep, and Covid. Nurse unable to hear FHTs via doppler here. Objective: Physical Exam General - alert and oriented, no apparent distress Abdomen - Soft, gravid, non-tender to palpation Ext - non-tender to palpation, no edema, negative Andrez's bilaterally heart tones: RN unable to obtain via doppler. Tocometer: No tocos US - verbal report: +FM FHT's 150s Anterior placenta. Breech presentation. Assessment: Sera Perez is a (27 /Para 1/0 ,Gestational Age 26(wks) with no movement since Sunday. Reassuring US here. I explained that the anterior placenta may be the cause that she doesn't feel movement very easily. We discussed kick counts and that she should not wait several days before notifying her OB if she does not feel FM. Plan: D/C home. F/U with her OB as scheduled. OTC meds for URI advised. MAN ALAS DO Jun 25, 2022 15:06
--- NOTE | 2022-06-25 15:26 | Diagnostic Imaging Report ---
US limited [id number] INDICATION: Decreased movement. COMPARISON: 04/24/2022. TECHNIQUE: Transabdominal sonographic imaging of the gravid uterus. FINDINGS: Single live intrauterine is in breech presentation. heart rate is 152 bpm. The cervix measures 3.4 cm in length. The LADAN is normal at 20.2 cm. Placenta is anterior position and there is no previa. movements are identified. IMPRESSION: Single live intrauterine . Dictated by: Dictated on workstation # [id number]
== END 2022-06-25 15:00 | disposition home or self-care (01) ==
LOC: WSo 13:16 → LDRP 13:16 → WSo 15:00
PROVIDERS: ATTEND Obstetrics & Gynecology
DX: O36.8392 Maternal care for abnormalities of the fetal heart rate or rhythm, unspecified trimester, fetus 2 (principal); Z3A.26 26 weeks gestation of pregnancy
CPT/HCPCS: 76815; 99212

== ENCOUNTER 2022-08-07 10:49 | Outpatient (CLI) | payer MEDICAID ==
[~2022-08-07] VITALS: Ht 159 cm; Wt 72.5 kg
[2022-08-07 11:18] VITALS: BP 130/83
[2022-08-07 11:18] LABS: BILIRUBIN,URINE NEGATIVE (NEGATIVE); CLARITY,URINE SL CLOUDY; COLOR,URINE YELLOW; GLUCOSE, URINE (UA) NEGATIVE (NEGATIVE); KETONES,URINE NEGATIVE (NEGATIVE); LEUKOCYTE ESTERASE ,URINE 2+ (NEGATIVE); NITRITE,URINE NEGATIVE (NEGATIVE); PH,URINE 7.5 (5-9); PROTEIN,URINE NEGATIVE (NEGATIVE)
[2022-08-07 11:35] LABS: BACTERIA,URINE TRACE /HPF; RBC,URINE RARE /HPF
--- NOTE | 2022-08-09 08:25 | Physician Query-Final Dx ---
JACEK,08/09/22 0825: Clinic Account Progress/Dx Physician Query: Please give diagnosis Please include # weeks gestation Date of Service Aug 07, 2022 at 10:49 TERESITA ROSS DO 08/09/22 1236: Clinic Account Progress/Dx DIAGNOSIS: Diagnosis 33 week IUP Vaginal discharge JACEK,MayAug 09, 2022 08:25 TERESITA ROSS DO Aug 09, 2022 12:36
== END 2022-08-07 12:05 | disposition home or self-care (01) ==
LOC: LDRP 10:49 → WSo 10:49
PROVIDERS: ATTEND Obstetrics & Gynecology
DX: O42.90 Premature rupture of membranes, unspecified as to length of time between rupture and onset of labor, unspecified weeks of gestation (principal); Z3A.00 Weeks of gestation of pregnancy not specified
CPT/HCPCS: 81000; 87088

== ENCOUNTER 2022-08-20 00:14 | Outpatient (CLI) | payer MEDICAID ==
[~2022-08-20] VITALS: Ht 157.5 cm; Wt 77.3 kg
[2022-08-20 00:30] VITALS: BP 117/85
[2022-08-20 00:31] LABS: BILIRUBIN,URINE NEGATIVE (NEGATIVE); CLARITY,URINE CLEAR; COLOR,URINE YELLOW; GLUCOSE, URINE (UA) NEGATIVE (NEGATIVE); KETONES,URINE NEGATIVE (NEGATIVE); LEUKOCYTE ESTERASE ,URINE TRACE (NEGATIVE); NITRITE,URINE NEGATIVE (NEGATIVE); PH,URINE 6.5 (5-9); PROTEIN,URINE NEGATIVE (NEGATIVE)
[2022-08-20 00:48] LABS: BACTERIA,URINE NEGATIVE /HPF; WBC,URINE RARE /HPF
[2022-08-20] MEDS ORDERED: RT-ALBUINH INH (01:00)
[2022-08-20] MEDS ORDERED: GUAI600T43 PO (01:00)
[2022-08-20] MEDS ORDERED: CETI10CA PO (01:00)
[2022-08-20] MEDS ORDERED: ONDA8TAB13 SL (01:00)
[2022-08-20] MEDS ORDERED: FAMO40TA72 PO (01:00)
[2022-08-20] MEDS ORDERED: PREN1TAB73 PO (01:00)
[2022-08-20] MEDS ORDERED: ACET-11 PO (01:00)
[2022-08-20 01:13] VITALS: BP 118/84
--- NOTE | 2022-08-20 08:33 | OB Triage Report ---
Standard Progress Note Progress Notes/Assess & Plan Date Seen by a Provider: Aug 20, 2022 Time Seen by a Provider: 00:15 Expected Date of Delivery: September 26, 2022 Gestational Age in Weeks: 34 Gestational Age in Days: 5 LMP/ANNA Comment: As above Progress/Assessment & Plan Patient presented to L&D with complaints of decreased movement, denies contractions or LOF, VSS, UA negative. Reactive NST, Category I per OB RN with no regular contractions noted. + movement noted by RN during monitoring and also noted by patient although subjectively less. Patient released from L&D and sent to ED for evaluation of URI/productive cough. Routine labor and kick count precautions. Final Diagnosis 34 weeks Not in labor Upper respiratory infection Diagnosis/Problems Diagnosis/Problems (1) 34 weeks gestation of Assessment & Plan: 34 weeks Not in labor Upper respiratory infection: released from L&D after reactive tracing. Sent to ED for evaluation of URI. GLENNY MUNOZ DO Aug 20, 2022 08:33
== END 2022-08-20 01:25 | disposition home or self-care (01) ==
LOC: WSo 00:14 → LDRP 00:16 → WSo 01:25
PROVIDERS: ATTEND Obstetrics & Gynecology
DX: O36.8130 Decreased fetal movements, third trimester, not applicable or unspecified (principal); Z3A.34 34 weeks gestation of pregnancy
CPT/HCPCS: 81000; 87088; 99213

== ENCOUNTER 2022-09-06 11:23 | Outpatient (CLI) | payer MEDICAID ==
[2022-09-06] VITALS (10 sets, daily range): BP systolic 110–128; BP diastolic 83–96
[~2022-09-06] VITALS: Ht 159 cm; Wt 77.4 kg
[~2022-09-06 11:23] MED LIST changes: +ACET-11 PO; +CETI10CA PO; +FAMO40TA72 PO; +GUAI600T43 PO; +ONDA8TAB13 SL; +PREN1TAB73 PO; +RT-ALBUINH INH
[2022-09-06 12:08] LABS: BILIRUBIN,URINE NEGATIVE (NEGATIVE); CLARITY,URINE CLEAR; COLOR,URINE YELLOW; GLUCOSE, URINE (UA) NEGATIVE (NEGATIVE); KETONES,URINE NEGATIVE (NEGATIVE); LEUKOCYTE ESTERASE ,URINE NEGATIVE (NEGATIVE); NITRITE,URINE NEGATIVE (NEGATIVE); PROTEIN,URINE NEGATIVE (NEGATIVE)
[2022-09-06 12:17] LABS: AMORPHOUS SEDIMENT,UR FEW AMOR PHOSPHATE /LPF; BACTERIA,URINE NEGATIVE /HPF; WBC,URINE RARE /HPF
--- NOTE | 2022-09-07 08:27 | Physician Query-Final Dx ---
JACEK09/07/22 0827: Clinic Account Progress/Dx Physician Query: Please give diagnosis Please include # weeks gestation Date of Service September 06, 2022 at 11:23 TERESITA ROSS DO 09/07/22 1003: Clinic Account Progress/Dx DIAGNOSIS: Diagnosis 37 week IUP Pelvic pain Irregular contractions JACEK,MaySeptember 07, 2022 08:27 TERESITA ROSS DO September 07, 2022 10:03
[2022-09-07] MEDS ORDERED: DIBU30OI TOP (23:33)
[2022-09-07] MEDS ORDERED: FERR325T24 PO (23:33)
[2022-09-07] MEDS ORDERED: DOCU100C37 PO (23:33)
[2022-09-07] MEDS ORDERED: IBUP-844 PO (23:33)
[2022-09-07] MEDS ORDERED: ACET-93 PO (23:33)
[2022-09-07] MEDS ORDERED: BENZ78AE5 TP (23:33)
== END 2022-09-06 13:42 | disposition home or self-care (01) ==
LOC: LDRP 11:23 → WSo 11:23
PROVIDERS: ATTEND Obstetrics & Gynecology
DX: O47.1 False labor at or after 37 completed weeks of gestation (principal); O99.891 Other specified diseases and conditions complicating pregnancy; Z3A.37 37 weeks gestation of pregnancy
CPT/HCPCS: 81000; 99214

== ENCOUNTER 2022-09-07 08:29 | Outpatient (CLI) | payer MEDICAID ==
[~2022-09-07] VITALS: Ht 157.5 cm; Wt 78.0 kg
[2022-09-07 08:45] VITALS: BP 133/90
[2022-09-07] MEDS ORDERED: BENZ78AE5 TP (23:33)
[2022-09-07] MEDS ORDERED: ACET-93 PO (23:33)
[2022-09-07] MEDS ORDERED: DOCU100C37 PO (23:33)
[2022-09-07] MEDS ORDERED: DIBU30OI TOP (23:33)
[2022-09-07] MEDS ORDERED: FERR325T24 PO (23:33)
[2022-09-07] MEDS ORDERED: IBUP-844 PO (23:33)
== END 2022-09-07 10:32 | disposition home or self-care (01) ==
LOC: LDRP 08:29 → WSo 08:29
PROVIDERS: ATTEND Obstetrics & Gynecology
DX: O62.9 Abnormality of forces of labor, unspecified (principal); Z3A.00 Weeks of gestation of pregnancy not specified
CPT/HCPCS: 99213

== ENCOUNTER 2022-09-07 15:45 | Inpatient (IN) | payer MEDICAID ==
[~2022-09-07] VITALS: Ht 157.5 cm; Wt 77.4 kg
[2022-09-07] VITALS (42 sets, daily range): BP systolic 108–141; BP diastolic 60–97
[2022-09-07] MEDS ORDERED: LIDOCAINE 1% INJ 20 ML VIAL IJ PRN (16:15)
[2022-09-07 16:36] LABS: BASOPHILS % (AUTO) 0 % (0-10); EOSINOPHILS % (AUTO) 0 % (0-10); HEMATOCRIT 32 % (35-52); HEMOGLOBIN 10.8 g/dL (11.5-16.0); LYMPHOCYTES # (AUTO) 2.2 10^3/uL (1.0-4.0); LYMPHOCYTES % (AUTO) 14 % (12-44); MEAN CORPUSCULAR HEMOGLOBIN 29 pg (25-34); MEAN CORPUSCULAR HGB CONC 34 g/dL (32-36); MEAN CORPUSCULAR VOLUME 86 fL (80-99); MEAN PLATELET VOLUME 9.6 fL (9.0-12.2); MONOCYTES % (AUTO) 6 % (0-12); NEUTROPHILS # (AUTO) 12.5 10^3/uL (1.8-7.8); NEUTROPHILS % (AUTO) 79 % (42-75); PLATELET COUNT 293 10^3/uL (130-400); WHITE BLOOD COUNT 15.8 10^3/uL (4.3-11.0)
[2022-09-07] MEDS: D5 LR IV SOLUTION 1,000 ML IV SCH ×2 (16:51→23:33)
[2022-09-07] MEDS ORDERED: fentaNYL 2 mcg/ml BUPIVA 0.125 100 ML ONE (16:57)
[2022-09-07] MEDS ORDERED: fentaNYL INJ 100 MCG/2 ML AMP ONE (17:21)
[2022-09-07] MEDS ORDERED: BUPIVACAINE 0.25% 10 ML (SENSORCAINE) VIAL ONE (17:21)
[2022-09-07 17:24] LABS: LYMPHOCYTES % (MANUAL) 9 %; MONOCYTES % (MANUAL) 4 %; NEUTROPHILS % (MANUAL) 87 %; RBC MORPH NORMAL
[2022-09-07] MEDS ORDERED: diphenhydrAMINE 50 MG/ML INJ (BENADRYL) IV PRN (18:00)
[2022-09-07] MEDS ORDERED: NALOXONE 0.4 MG/ML 1 ML (NARCAN) VIAL IV PRN ×2 (18:00→23:30)
[2022-09-07] MEDS ORDERED: LACTATED RINGERS 1,000 ML IV SCH (18:00)
[2022-09-07] MEDS ORDERED: ONDANSETRON 4 MG/2 ML (SDV) Z0FRAN IV PRN (18:00)
[2022-09-07] MEDS ORDERED: fentaNYL 2 mcg/ml BUPIVA 0.125 100 ML EPI SCH (18:00)
[2022-09-07] MEDS ORDERED: ACETAMINOPHEN 500 MG TAB (TYLENOL) PO ONE (21:00)
[2022-09-07] MEDS ORDERED: ACETAMINOPHEN 500 MG TAB (TYLENOL) ONE (21:19)
[2022-09-07] MEDS ORDERED: CATHETER FLUSH 10 ML SYR IV SCH (22:00)
[2022-09-07] MEDS ORDERED: OXYTOCIN PRE-MIX DRIP 500 ML IV ONE ×2 (22:12→23:31)
[2022-09-07] MEDS ORDERED: LIDOCAINE 1% INJ 10 ML VIAL ONE (22:53)
[2022-09-07] MEDS: OXYTOCIN PRE-MIX DRIP 500 ML IV SCH ×2 (23:00→23:34)
[2022-09-07] MEDS ORDERED: KETOROLAC 30 MG/ML VIAL ONE (23:07)
--- NOTE | 2022-09-07 23:27 | History & Physical-OB ---
OB - Chief Complaint & HPI Date/Time Date of Admission: Date of Admission: September 07, 2022 at 16:01 Date seen by a Provider: September 07, 2022 Time Seen by a Provider: 10:30 Chief Complaint/History OB-Reason for Admission/Chief: Onset of Labor Hx : 1 Hx Para: 0 Expected Date of Delivery: September 26, 2022 Gestational Age in Weeks: 37 Gestational Age in Days: 2 Admission Nurse Assessment Rev: Yes History of Labs A pos antibody neg RI RPR NR HBsAg NR HIV NR GC neg GBS neg Allergies and Home Medications Allergies Coded Allergies: morphine (Verified Adverse Reaction, Mild, SKIN HYPERSENSITIVITY, 09/26/21) Patient Home Medication List Home Medication List Reviewed: Yes Albuterol Sulfate (Ventolin Hfa) 1 Puff Puff, 2 PUFF INH Q6H PRN for SHORTNESS OF BREATH, (Reported) Entered as Reported by: BRETT TOBAR on 08/20/2299 Cetirizine HCl (Zyrtec) 10 Mg Capsule, 1 TAB PO DAILY, (Reported) Entered as Reported by: BRETT TOBAR on 08/20/2299 Famotidine (Pepcid) 40 Mg Tablet, 40 MG PO DAILY, (Reported) Entered as Reported by: BRETT TOBAR on 08/20/2299 Pnv95/Ferrous Fumarate/FA ( Tablet) 28 Mg Iron-800 Mcg Tablet, 1 EACH PO DAILY, (Reported) Entered as Reported by: BRETT TOBAR on 08/20/2299 Discontinued Medications Acetaminophen with Codeine (Acetaminophen-Cod #3 Tablet) 300 Mg-30 Mg Tablet, 1 EACH PO PRN, (Reported) Discontinued Reason: No Longer Taking Entered as Reported by: BRETT TOBAR on 08/20/2299 Guaifenesin (Mucinex) Unknown Strength Tab.er.12h, Unknown Dose PO PRN, (Reported) Discontinued Reason: No Longer Taking Entered as Reported by: BRETT TOBAR on 08/20/2299 Ondansetron (Ondansetron Odt) 8 Mg Tab.rapdis, 8 MG SL Q6H PRN for NAUSEA/VOMITING, (Reported) Discontinued Reason: No Longer Taking Entered as Reported by: BRETT TOBAR on 08/20/2299 OB - History Hx of Present Care: Yes Ultrasounds: Normal mid trimester US Obstetrical Complications: None Medical Complications: None Delivery History Hx Blood Disorders: No Adverse Rxn to Tranfusion: No Patient Past Medical History nc Social History/Family History 2nd Hand Smoke Exposure: No Immunizations First/Initial COVID19 Vaccine: 06/11/2020 Second COVID19 Vaccination: 07/02/2020 Third COVID19 Vaccination Date: 05/12/21 [facility] OB - Admission Exam Physical Exam Vitals: Vital Signs 09/07/22 09/07/22 19:49 21:33 Temp 36.5 Pulse 122 Resp 20 B/P (MAP) 128/80 (96) Pulse Ox 96 O2 Delivery Room Air HEENT: NCAT Heart: Rhythm Normal Lungs: Clear Abdomen: Gravid Extremities: Normal Reflexes: Normal Cervical Dilatation: 3cm Effacement: 75% Station: -1 Membranes: Intact Heart Rate: 130's Accelerations: Accelerations Present Decelerations: No Decelerations Short Term Variability: Present Cop Examiner Variability: Average (6-25) Contractions on Admission: < 5 Minutes Apart Intensity: Mild Labs Laboratory Tests Test 09/07/22 16:25 09/07/22 16:45 Range/Units White Blood Count 15.8 H 4.3-11.0 10^3/uL Red Blood Count 3.73 L 3.80-5.11 10^6/uL Hemoglobin 10.8 L 11.5-16.0 g/dL Hematocrit 32 L 35-52 % Mean Corpuscular Volume 86 80-99 fL Mean Corpuscular Hemoglobin 29 25-34 pg Mean Corpuscular Hemoglobin Concent 34 32-36 g/dL Red Cell Distribution Width 13.5 10.0-14.5 % Platelet Count 293 130-400 10^3/uL Mean Platelet Volume 9.6 9.0-12.2 fL Immature Granulocyte % (Auto) 0 % Neutrophils (%) (Auto) 79 H 42-75 % Lymphocytes (%) (Auto) 14 12-44 % Monocytes (%) (Auto) 6 0-12 % Eosinophils (%) (Auto) 0 0-10 % Basophils (%) (Auto) 0 0-10 % Neutrophils # (Auto) 12.5 H 1.8-7.8 10^3/uL Lymphocytes # (Auto) 2.2 1.0-4.0 10^3/uL Monocytes # (Auto) 1.0 0.0-1.0 10^3/uL Eosinophils # (Auto) 0.0 0.0-0.3 10^3/uL Basophils # (Auto) 0.0 0.0-0.1 10^3/uL Immature Granulocyte # (Auto) 0.1 0.0-0.1 10^3/uL Neutrophils % (Manual) 87 % Lymphocytes % (Manual) 9 % Monocytes % (Manual) 4 % Blood Morphology Comment NORMAL OB - Assessment/Plan/Diagnosis Assessment Assessment: active labor Admission Dx 27 yo @ 37 weeks Active labor GBS neg Admission Status: Inpatient Order (span 2 midnights) Reason for Inpatient Admission: active labor at term Plan Plan: Expectant Management TERESITA ROSS DO September 07, 2022 23:27
[2022-09-07] MEDS: LIDOCAINE 1% INJ 10 ML VIAL INJ PRN ×2 (23:29→23:30)
--- NOTE | 2022-09-07 23:29 | OB Labor & Delivery Record ---
L&D History Date of Service Date of Service: September 07, 2022 History Expected Date of Delivery: September 26, 2022 Gestational Age in Weeks: 37 Hx : 1 Hx Para: 0 Complications Events: Routine care Operative Indications (Cesarea: N/A-Vaginal Delivery Intrapartal Events: None L&D Stage1 Stage One Onset of Labor - Date: September 07, 2022 Monitors and Tracing Monitor Mode: External Heart Rate: 145 Station: 0 Vital Signs VS - Last 72 Hours, by Label 09/07/22 09/07/22 09/07/22 09/07/22 15:37 16:09 17:19 17:29 Temp 37.2 37.2 Pulse 118 118 131 137 Resp B/P (MAP) 120/79 (93) 113/73 (86) 120/78 (92) Pulse Ox 99 100 99 O2 Delivery Room Air Room Air Room Air Room Air 09/07/22 09/07/22 09/07/22 09/07/22 17:31 17:36 17:41 17:44 Pulse 140 136 136 136 Resp B/P (MAP) 131/89 (103) 123/75 (91) 125/81 (96) 121/79 (93) Pulse Ox 99 99 99 98 O2 Delivery Room Air Room Air Room Air Room Air 09/07/22 09/07/22 09/07/22 09/07/22 17:47 17:48 17:51 17:53 Pulse 131 125 127 123 Resp B/P (MAP) 116/68 (84) 116/72 (87) 120/62 (81) 114/64 (81) Pulse Ox 98 98 100 100 O2 Delivery Room Air Room Air Room Air Room Air 09/07/22 09/07/22 09/07/22 09/07/22 18:03 18:10 18:14 18:19 Pulse 117 119 115 118 Resp B/P (MAP) 118/74 (89) 123/80 (94) 119/75 (90) 116/75 (89) Pulse Ox 92 98 100 100 O2 Delivery Room Air Room Air Room Air Room Air 09/07/22 09/07/22 09/07/22 09/07/22 18:25 18:29 18:34 18:39 Pulse 118 116 117 119 Resp 22 22 22 22 B/P (MAP) 115/77 (90) 117/75 (89) 121/76 (91) 113/72 (86) Pulse Ox 100 100 100 100 O2 Delivery Room Air Room Air Room Air Room Air 09/07/22 09/07/22 09/07/22 09/07/22 18:44 19:05 19:18 19:33 Pulse 118 119 130 123 Resp B/P (MAP) 114/72 (86) 122/73 (89) 141/77 (98) 131/72 (91) Pulse Ox 98 98 98 96 O2 Delivery Room Air Room Air Room Air Room Air 09/07/22 09/07/22 09/07/22 09/07/22 19:49 20:04 20:19 20:34 Temp 36.5 Pulse 116 122 118 114 Resp 20 B/P (MAP) 128/75 (92) 123/76 (92) 117/76 (90) 113/83 (93) Pulse Ox 96 O2 Delivery Room Air 09/07/22 09/07/22 09/07/22 09/07/22 20:49 21:03 21:20 21:33 Pulse 114 120 121 122 B/P (MAP) 109/79 (89) 131/80 (97) 132/88 (103) 128/80 (96) Rupture of Membranes Spontaneous Ruture of Membrane: No Amniotic Membrane Rupture Time: 1919 Amniotic Membrane Fluid Desc.: Clear Induction/Anesthesia Epidural Cath Placement - Time: 1746 Progress/Notes Patient admitted and had epidural placed which did not really improve pain, AROM performed shortly after that, and she progressed rapidly with no further augmentation to complete and + 2 station. L&D Stage2 Stage Two Stage II Date: September 07, 2022 Monitors and Tracing Monitor Mode: External Heart Rate: 145 Monitor Accelerations: Uniform Monitor Decelerations: Variable Jail Variability: Average (6-10) Short Term Variability: Present Position: Right Occiput Anterior Presentation: Vertex Cord Descript/Complications Cord Vessel Description: 3 Vessels Delivery Type Infant Delivery Method: Spontaneous Vaginal Anterior Shoulder: Left Episiotomy/Perineal Laceration Laceraction(s)/Extensions: Yes Episiotomy Description: Periurethral Extnsion/lac, Perineal Extension/lac, 2nd degree (perineal laceration repaired using 3-0 and 2-0 vicryl in usual fashion. Clitoral laceration repaired using 3-0 rapide.) Condition of Delivery 1 minute Comment: 8 5 minute Comment: 9 Notes Live male infant weight 7lbs 4 oz Condition of Condition of Infant: Living Exam: No Observed Abnormalities Resuscitation Resuscitation: N/A - Spontaneous Resp L&D Stage3 Stage Three Stage III Date: September 07, 2022 Pictocin Pitocin Administration Comment: 30 mu wide open after delivery of placenta Placenta Delivery Placenta Delivery: Spontaneous Delivery Summary Summary Estimated blood loss (mL): 300 Attending at delivery: Teresita Ross DO Condition of Delivery Examined: Cervix Examined, Uterus Explored Post Hemorrhage: No Condition of Mother stable Condition of Infant (s) stable TERESITA ROSS DO September 07, 2022 23:29
[2022-09-07] MEDS ORDERED: WITCH HAZEL(TUCKS) 40 EA JAR TOP PRN (23:30)
[2022-09-07] MEDS ORDERED: MEASLES,MUMPS,RUBELLA 1 EA INJ SQ ONE (23:30)
[2022-09-07] MEDS ORDERED: DIBUCAINE 1% OINTMENT 28 GM TUBE TOP PRN (23:30)
[2022-09-07] MEDS ORDERED: BENZOCAINE/MENTHOL (DERMOPLAST) 56 ML CAN TP PRN (23:30)
[2022-09-07] MEDS ORDERED: TETANUS,DIPTH,PERTUSS P/F (BOOSTRIX) 0.5 ML VIAL IM ONE (23:30)
[2022-09-07] MEDS ORDERED: LIDOCAINE 1% INJ 10 ML VIAL INJ ONE (23:30)
[2022-09-07] MEDS ORDERED: ACETAMINOPHEN 500 MG TAB (TYLENOL) PO SCH (23:30)
[2022-09-07] MEDS ORDERED: KETOROLAC 30 MG/ML VIAL IVP ONE (23:30)
--- NOTE | 2022-09-07 23:32 | Discharge Inst-Women's Service ---
Discharge Inst-Women's Serv Depart Medication/Instructions New, Converted or Re-Newed RX: Transmitted to Pharmacy Final Diagnosis PPD 2 NVD Problems Reviewed?: Yes Consults/Follow Up Additional Follow Up: Yes Orders/Referrals Dr. Ross in 6 weeks Activity Activity: Activity as Tolerated Driving Instructions: No Driving for 1 Week NO SMOKING: NO SMOKING Nothing Inside Vagina: No Douching, No [place], No Tampons Diet Discharge Diet: No Restrictions Symptoms to Report to : Bleeding Excessive, Pain Increased, Fever Over 101 Degrees F, Vaginal Bleeding Increase, Questions/Concerns For Any Problems or Questions: Contact Your Physician TERESITA ROSS DO September 07, 2022 23:32
[2022-09-07] MEDS ORDERED: DIBU30OI TOP (23:33)
[2022-09-07] MEDS ORDERED: IBUP-844 PO (23:33)
[2022-09-07] MEDS ORDERED: DOCU100C37 PO (23:33)
[2022-09-07] MEDS ORDERED: FERR325T24 PO (23:33)
[2022-09-07] MEDS ORDERED: ACET-93 PO (23:33)
[2022-09-07] MEDS ORDERED: BENZ78AE5 TP (23:33)
[2022-09-08] VITALS (10 sets, daily range): BP systolic 100–127; BP diastolic 63–85
[2022-09-08] MEDS: ACETAMINOPHEN 500 MG TAB (TYLENOL) PO SCH ×4 (03:01→21:30)
[2022-09-08] MEDS: IBUPROFEN 600 MG (MOTRIN) TAB PO SCH ×4 (05:10→23:20)
[2022-09-08 05:39] LABS: BASOPHILS % (AUTO) 0 % (0-10); EOSINOPHILS % (AUTO) 0 % (0-10); HEMATOCRIT 24 % (35-52); HEMOGLOBIN 8.3 g/dL (11.5-16.0); LYMPHOCYTES # (AUTO) 1.9 10^3/uL (1.0-4.0); LYMPHOCYTES % (AUTO) 10 % (12-44); MEAN CORPUSCULAR HEMOGLOBIN 30 pg (25-34); MEAN CORPUSCULAR HGB CONC 34 g/dL (32-36); MEAN CORPUSCULAR VOLUME 86 fL (80-99); MEAN PLATELET VOLUME 9.5 fL (9.0-12.2); MONOCYTES # (AUTO) 1.4 10^3/uL (0.0-1.0); MONOCYTES % (AUTO) 8 % (0-12); NEUTROPHILS # (AUTO) 14.9 10^3/uL (1.8-7.8); NEUTROPHILS % (AUTO) 81 % (42-75); PLATELET COUNT 263 10^3/uL (130-400); WHITE BLOOD COUNT 18.4 10^3/uL (4.3-11.0)
[2022-09-08] MEDS ORDERED: CATHETER FLUSH 10 ML SYR IV SCH (06:00)
[2022-09-08] MEDS: FERROUS SULF 325 MG (IRON) TAB PO SCH (08:16)
[2022-09-08] MEDS: DOCUSATE SODIUM 100 MG (COLACE) CAP PO SCH ×2 (08:16→21:30)
[2022-09-08] MEDS: PRENATAL VITAMIN 1 EA TAB PO SCH (08:16)
--- NOTE | 2022-09-08 09:04 | Anesthesia-Regional Post-Op ---
Regional Patient Condition Mental Status: Alert, Oriented x3 Circulation: Same as Pre-Op Headache: Absent Sensation: Full Recovery Motor Block: Absent Post Op Complications Complications None Follow Up Care/Instructions Patient Instructions None needed. Anesthesia/Patient Condition Patient is doing well, no complaints, stable vital signs, no apparent adverse anesthesia problems. No complications reported per nursing. KORI LEONARD CRNA September 08, 2022 09:04
[2022-09-09 03:46] VITALS: BP 128/90
[2022-09-09] MEDS: ACETAMINOPHEN 500 MG TAB (TYLENOL) PO SCH ×2 (03:47→10:30)
[2022-09-09] MEDS: IBUPROFEN 600 MG (MOTRIN) TAB PO SCH (05:30)
[2022-09-09] MEDS: FERROUS SULF 325 MG (IRON) TAB PO SCH (10:30)
[2022-09-09] MEDS: PRENATAL VITAMIN 1 EA TAB PO SCH (10:30)
[2022-09-09] MEDS: DOCUSATE SODIUM 100 MG (COLACE) CAP PO SCH (10:30)
[2022-09-09 10:32] VITALS: BP 115/74
--- NOTE | 2022-09-09 11:21 | Postpartum Progress Note ---
Note Note Day # [] Subjective: Patient is without complaints. Ambulating, voiding. Tolerating a regular diet without nausea or vomiting. Normal lochia. Pain is well controlled with oral pain medications.Breast feeding going well. Objective: Physical Exam: General - Alert and oriented, no apparent distress Breast symmetrical no erythema or engorgement Abdomen - Soft, appropriately tender to palpation, non-distended, fundus firm at umbilicus Lochia minimal Extremities - no edema, negative Andrez's bilaterally Assessment: post- day #1, status post vaginal delivery. Recovering well, hemodynamically stable Plan: Routine care. Encourage breast feeding. Encourage ambulation. Ferrous sulfate supplementation. Plan for discharge Vitals - Labs Vital Signs - I&O Vital Signs Date Time Temp Pulse Resp B/P (MAP) Pulse Ox O2 Delivery O2 Flow Rate FiO2 09/09/22 10:32 36.4 92 18 115/74 (88) Room Air 09/09/22 03:46 36.8 90 18 128/90 (103) 96 Room Air 09/08/22 22:01 37.1 99 20 127/85 (99) 98 Room Air 09/08/22 15:31 36.0 112 18 123/83 (96) 98 Room Air 09/08/22 12:30 35.9 83 18 113/78 (90) 97 Room Air RAJAT DIANA DO September 09, 2022 11:21
== END 2022-09-09 12:25 | disposition home or self-care (01) | DRG 807 ==
LOC: WSo 15:45 → LDRP 15:46 → WSo 16:01 → LDRP 16:01
PROVIDERS: ADMIT Obstetrics & Gynecology; ATTEND Obstetrics & Gynecology
PROC: 10E0XZZ Delivery of Products of Conception, External Approach (ICD-10-PCS; principal; 2022-09-07)
PROC: 0KQM0ZZ Repair Perineum Muscle, Open Approach (ICD-10-PCS; 2022-09-07)
PROC: 10907ZC Drainage of Amniotic Fluid, Therapeutic from Products of Conception, Via Natural or Artificial Opening (ICD-10-PCS; 2022-09-07)
PROC: 0UQMXZZ Repair Vulva, External Approach (ICD-10-PCS; 2022-09-07)
DX: O70.1 Second degree perineal laceration during delivery (principal); Z37.0 Single live birth; Z3A.37 37 weeks gestation of pregnancy; O71.82 Other specified trauma to perineum and vulva
CPT/HCPCS: 36415; 85007; 85025; 85027; 86780; 86850; 86900; 86901

== ENCOUNTER 2022-09-27 11:45 | Inpatient (IN) | payer MEDICAID ==
[2022-09-27] VITALS (8 sets, daily range): BP systolic 92–112; BP diastolic 56–77
[~2022-09-27] VITALS: Ht 157 cm; Wt 68.0 kg
[~2022-09-27 11:45] MED LIST changes: +ACET-93 PO; +BENZ78AE5 TP; +DIBU30OI TOP; +DOCU100C37 PO; +FERR325T24 PO; +IBUP-844 PO
[2022-09-27] MEDS ORDERED: PIPERACILLIN SODIUM/TAZOBACTAM 4.5 GM in NS (IVPB) 100 ML IV ONE (12:15)
[2022-09-27] MEDS ORDERED: NS IV 1000 ML 1,000 ML IV SCH (12:15)
--- NOTE | 2022-09-27 12:15 | ED General ---
General Chief Complaint: Post OP Complications/Pain Stated Complaint: FEVER | LT SIDE PAIN | ABD PAIN | VOMITING Nursing Triage Note: ARRIVED VIA AMB TO ROOM 10. 3 WEEKS POST OP. GREEN VAGINAL DISCHARGE AND PAIN LEFT BREAST. FEVER OF 102 LAST NIGHT THAT CONTINUED THIS AM. TOOK MOTRIN AT APPX 1100 TODAY. VAGINAL DELIVERY. PT COMPLAINS OF LOWER ABD PAIN, HEAD ACHE AND LEFT BREAST PAIN. Source of Information: Patient, Family (mother) Exam Limitations: No Limitations History of Present Illness Date Seen by Provider: September 27, 2022 Time Seen by Provider: 12:00 Initial Comments 27-year-old female G1, P1 who is approximately 3 weeks presents emergency department today for vaginal discharge, left breast pain. Vaginal discharge started about a week ago. She tells her OBs office and had not yet received a call back. The mother checked her heart rate and was in the 130s which prompted her emergency department visit. She has had some nausea and vomited once this morning. She also complains of some bilateral lower abdominal tenderness, mostly in her pelvic region. Lastly, couple days ago she developed a hard lump in her left outer breast that is now become red. It is significantl y tender to palpation. All other systems reviewed and negative except documented per HPI. Voice recognition software was used to help create this chart Allergies and Home Medications Allergies Coded Allergies: morphine (Verified Adverse Reaction, Mild, SKIN HYPERSENSITIVITY, 09/26/21) Patient Home Medication List Home Medication List Reviewed: Yes Acetaminophen (Acetaminophen) 500 Mg Tablet, 1,000 MG PO Q6H Prescribed by: TERESITA ROSS on 09/07/222332 Albuterol Sulfate (Ventolin Hfa) 1 Puff Puff, 2 PUFF INH Q6H PRN for SHORTNESS OF BREATH, (Reported) Entered as Reported by: BRETT TOBAR on 08/20/2299 Benzocaine/Menthol (Dermoplast Pain Relieving [place]) 20 %-0.5 % Aerosol, 56 EA TP UD PRN for PAIN- SEE INSTRUCTIONS Prescribed by: TERESITA ROSS on 09/07/222332 Cetirizine HCl (Zyrtec) 10 Mg Capsule, 1 TAB PO DAILY, (Reported) Entered as Reported by: BRETT TOBAR on 08/20/2299 Dibucaine (Dibucaine) 1 % Oint, 1 GM TOP UD PRN for PAIN- SEE INSTRUCTIONS Prescribed by: TERESITA ROSS on 09/07/222332 Docusate Sodium (Docusate Sodium) 100 Mg Capsule, 100 MG PO BID PRN for CONSTIPATION-1ST LINE Prescribed by: TERESITA ROSS on 09/07/222332 Famotidine (Pepcid) 40 Mg Tablet, 40 MG PO DAILY, (Reported) Entered as Reported by: BRETT TOBAR on 08/20/2299 Ferrous Sulfate (Ferosul) 325 Mg (65 Mg Iron) Tablet, 325 MG PO DAILY Prescribed by: TERESITA ROSS on 09/07/222332 Ibuprofen (Ibu) 600 Mg Tablet, 600 MG PO Q6H Prescribed by: TERESITA ROSS on 09/07/222332 Pnv95/Ferrous Fumarate/FA ( Tablet) 28 Mg Iron-800 Mcg Tablet, 1 EACH PO DAILY, (Reported) Entered as Reported by: BRETT TOBAR on 08/20/2299 Review of Systems Review of Systems Constitutional: see HPI Past Hcvaxxf-Tlirql-[place]ax[place] Hx Patient Social History Tobacco Use?: No Substance use?: No Alcohol Use?: No Immunizations Up To Date PED Vaccines UTD: Yes First/Initial COVID19 Vaccinat: 06/11/2020 Second COVID19 Vaccination Hira: 07/02/2020 Third COVID19 Vaccination Date: 05/12/21 MODERNA Seasonal Allergies Seasonal Allergies: Yes Past Medical History Surgery/Hospitalization HX: SPINAL FUSION T2-L2 Surgeries: Yes (SPINAL FUSION FROM T2 TO L2 FOR SCOLIOSIS) Orthopedic Respiratory: Yes (EXERCISE INDUCED) Asthma Currently Using CPAP: No Currently Using BIPAP: No Cardiac: No Neurological: Yes Headaches /Migraines Reproductive Disorders: No Female Reproductive Disorders: Denies Sexually Transmitted Disease: No HIV/AIDS: No Genitourinary: No Gastrointestinal: Yes Gastroesophageal Reflux, Chronic Constipation Musculoskeletal: Yes Scoliosis Endocrine: No Cancer: No Psychosocial: No Integumentary: No Blood Disorders: No Adverse Reaction/Blood Tranf: No Physical Exam Vital Signs Vital Signs - First Documented 09/27/22 11:52 Temp 37.1 Pulse 129 Resp 16 B/P (MAP) 99/72 (81) Pulse Ox 96 O2 Delivery Room Air Capillary Refill : Less Than 3 Seconds Height, Weight, BMI Height: 5'2" Weight: 150lbs. oz. [id number]; 27.00 BMI Method:Stated General Appearance: No Apparent Distress, WD/WN HEENT: Normal ENT Inspection, Pharynx Normal Neck: Full Range of Motion, Normal Inspection, Non Tender, Supple Respiratory: Chest Non Tender, Lungs Clear, Normal Breath Sounds, No Accessory Muscle Use, No Respiratory Distress Cardiovascular: No Murmur, Normal Peripheral Pulses, Tachycardia Gastrointestinal: Normal Bowel Sounds, No Organomegaly, No Pulsatile Mass, Soft, Tenderness (Tenderness palpation of the suprapubic region with voluntary guarding. No rebound tenderness. No mass organomegaly. No skin changes.) Back: Normal Inspection, No CVA Tenderness, No Vertebral Tenderness Extremity: Normal Capillary Refill, Normal Range of Motion, Non Tender, No Calf Tenderness Neurologic/Psychiatric: Alert, Oriented x3, Normal Mood/Affect Skin: Other (Left upper outer breast is tender to palpation with an area of induration about 5 cm in diameter. No fluctuance. There is some overlying erythema.) Progress/Results/Core Measures Suspected Sepsis SIRS Temperature: Pulse: 129 Respiratory Rate: 16 Blood Pressure 99 /72 Mean: 81 Results/Orders My Orders Orders - SKINNY COLIN DO Cbc With Automated Diff (09/27/22 12:01) Comprehensive Metabolic Panel (09/27/22 12:01) Blood Culture (09/27/22 12:01) Urinalysis (09/27/22 12:01) Ed Iv/Invasive Line Start (09/27/22 12:01) Vital Signs Adult Sepsis Patie Q15M (09/27/22 12:01) Lactic Acid Analyzer (09/27/22 12:01) Ns Iv 1000 Ml (Sodium Chloride 0.9%) (09/27/22 12:15) Piperacillin Sodium/Tazobactam (Zosyn Vi (09/27/22 12:15) Ed Admission (Communication) (09/27/22 12:08) Body Fluid Culture (09/27/22 12:12) Vital Signs/I&O 09/27/22 11:52 Temp 37.1 Pulse 129 Resp 16 B/P (MAP) 99/72 (81) Pulse Ox 96 O2 Delivery Room Air Capillary Refill : Less Than 3 Seconds Blood Pressure Mean: 81 Departure Communication (Admissions) I spoke to Dr. Sams. Patient is tachycardic, febrile and overall looks unwell but nontoxic. She does have some mastitis of her left breast, mild. More concerning is her foul-smelling vaginal discharge . She is given IV fluids and I ordered Zosyn at Dr. Sams's recommendation. Patient will be admitted to the mother-baby for further evaluation and treatment. Impression Primary Impression: Mastitis Additional Impressions: Vaginal discharge Sepsis Qualified Codes: A41.9 - Sepsis, unspecified organism Disposition: ADMITTED INPATIENT Condition: Stable Admissions Decision to Admit Reason: Admit from ER (General) Departure-Patient Inst. Referrals: BISI CHISHOLM (PCP/Family) Primary Care Physician SKINNY COLIN DO September 27, 2022 12:15
[2022-09-27 12:23] LABS: BASOPHILS # (AUTO) 0.1 10^3/uL (0.0-0.1); BASOPHILS % (AUTO) 0 % (0-10); EOSINOPHILS % (AUTO) 0 % (0-10); HEMATOCRIT 33 % (35-52); HEMOGLOBIN 10.8 g/dL (11.5-16.0); LYMPHOCYTES # (AUTO) 1.7 10^3/uL (1.0-4.0); LYMPHOCYTES % (AUTO) 11 % (12-44); MEAN CORPUSCULAR HEMOGLOBIN 28 pg (25-34); MEAN CORPUSCULAR HGB CONC 33 g/dL (32-36); MEAN CORPUSCULAR VOLUME 86 fL (80-99); MEAN PLATELET VOLUME 9.2 fL (9.0-12.2); MONOCYTES # (AUTO) 0.4 10^3/uL (0.0-1.0); MONOCYTES % (AUTO) 3 % (0-12); NEUTROPHILS # (AUTO) 13.4 10^3/uL (1.8-7.8); NEUTROPHILS % (AUTO) 85 % (42-75); PLATELET COUNT 360 10^3/uL (130-400); WHITE BLOOD COUNT 15.7 10^3/uL (4.3-11.0)
[2022-09-27 12:31] LABS: ALBUMIN 3.5 GM/DL (3.2-4.5); POTASSIUM 3.7 MMOL/L (3.6-5.0)
[2022-09-27 12:32] LABS: CALCIUM 8.7 MG/DL (8.5-10.1)
[2022-09-27 12:33] LABS: TOTAL PROTEIN 6.5 GM/DL (6.4-8.2)
[2022-09-27 12:35] LABS: BILIRUBIN,TOTAL 0.4 MG/DL (0.1-1.0)
[2022-09-27 12:37] LABS: CREATININE SERUM 0.82 MG/DL (0.60-1.30)
[2022-09-27] MEDS ORDERED: metroNIDAZOLE 500 MG (FLAGYL) TAB ONE (12:57)
[2022-09-27 13:01] LABS: BAND NEUTROPHILS 5 %; LYMPHOCYTES % (MANUAL) 9 %; MONOCYTES % (MANUAL) 3 %; NEUTROPHILS % (MANUAL) 83 %; RBC MORPH NORMAL
[2022-09-27 13:17] LABS: BILIRUBIN,URINE NEGATIVE (NEGATIVE); CLARITY,URINE SL CLOUDY; COLOR,URINE YELLOW; GLUCOSE, URINE (UA) NEGATIVE (NEGATIVE); KETONES,URINE NEGATIVE (NEGATIVE); LEUKOCYTE ESTERASE ,URINE 3+ (NEGATIVE); NITRITE,URINE NEGATIVE (NEGATIVE); PH,URINE 8.5 (5-9); PROTEIN,URINE 1+ (NEGATIVE)
[2022-09-27 13:28] LABS: AMORPHOUS SEDIMENT,UR FEW AMOR PHOSPHATE /LPF; RBC,URINE RARE /HPF; WBC,URINE 25-50 /HPF
[2022-09-27 13:30] LABS: BACTERIA,URINE MODERATE /HPF
[2022-09-27] MEDS ORDERED: KETOROLAC 30 MG/ML VIAL IVP ONE (13:45)
--- NOTE | 2022-09-27 13:57 | History & Physical-OB/GYN ---
History of Present Illness History of Present Illness Reason for visit/HPI This 27yo presents to ER with c/o tachycardia, temp 102 and increased pain in pelvis and right breast. She states that she has a vaginal discharge that is green and has an odor to it. She states that has been going on for 1 week. She also states that her right breast is tender, red and swollen. Pt is . Pt denies intercourse and denies HO STDs. Pt delivered via 3wk ago. Date of Admission September 27, 2022 at 13:25 Date Seen by a Provider: September 27, 2022 Time Seen by a Provider: 12:30 I consulted on this patient on 09/27/22 13:51 Attending Physician Patsy Prabhakar Admitting Physician Admitting Physician: Dona Sams DO Attending Physician: Dona Sams DO Consult Allergies and Home Medications Allergies Coded Allergies: morphine (Verified Adverse Reaction, Mild, SKIN HYPERSENSITIVITY, 09/26/21) Patient Home Medication List Home Medication List Reviewed: Yes Acetaminophen (Acetaminophen) 500 Mg Tablet, 1,000 MG PO Q6H Prescribed by: TEREISTA ROSS on 09/07/222332 Last Action: Reviewed Albuterol Sulfate (Ventolin Hfa) 1 Puff Puff, 2 PUFF INH Q6H PRN for SHORTNESS OF BREATH, (Reported) Entered as Reported by: BRETT TOBAR on 08/20/2299 Last Action: Reviewed Benzocaine/Menthol (Dermoplast Pain Relieving [place]) 20 %-0.5 % Aerosol, 56 EA TP UD PRN for PAIN- SEE INSTRUCTIONS Prescribed by: TERESITA ROSS on 09/07/222332 Last Action: Reviewed Cephalexin (Cephalexin) 500 Mg Tablet, 500 MG PO QID Prescribed by: Dona Sams on 09/28/22 09 Cetirizine HCl (Zyrtec) 10 Mg Capsule, 1 TAB PO DAILY, (Reported) Entered as Reported by: BRETT TOBAR on 08/20/2299 Last Action: Reviewed Dibucaine (Dibucaine) 1 % Oint, 1 GM TOP UD PRN for PAIN- SEE INSTRUCTIONS Prescribed by: TERESITA ROSS on 09/07/222332 Last Action: Reviewed Docusate Sodium (Docusate Sodium) 100 Mg Capsule, 100 MG PO BID PRN for CONSTIPATION-1ST LINE Prescribed by: TERESITA ROSS on 09/07/222332 Last Action: Reviewed Famotidine (Pepcid) 40 Mg Tablet, 40 MG PO DAILY, (Reported) Entered as Reported by: BRETT TOBAR on 08/20/2299 Last Action: Reviewed Ferrous Sulfate (Ferosul) 325 Mg (65 Mg Iron) Tablet, 325 MG PO DAILY Prescribed by: TERESITA ROSS on 09/07/222332 Last Action: Reviewed Ibuprofen (Ibu) 600 Mg Tablet, 600 MG PO Q6H Prescribed by: TERESITA ROSS on 09/07/222332 Last Action: Reviewed Pnv95/Ferrous Fumarate/FA ( Tablet) 28 Mg Iron-800 Mcg Tablet, 1 EACH PO DAILY, (Reported) Entered as Reported by: BRETT TOBAR on 08/20/2299 Last Action: Reviewed Past Oidfgom-Gkqeax-Cnnlut Hx Patient Social History Marrital Status: single Number of Children: 1 Smoking Status: Never a Smoker 2nd Hand Smoke Exposure: No Recent Hopitalizations: No Have you traveled recently?: No Alcohol Use?: No Immunizations Up To Date Pediatric: Yes Seasonal Allergies Seasonal Allergies: Yes Surgeries Yes (SPINAL FUSION FROM T2 TO L2 FOR SCOLIOSIS) Orthopedic Respiratory Yes (EXERCISE INDUCED) Currently Using CPAP: No Currently Using BIPAP: No Cardiovascular No Neurological Yes Headaches /Migraines Reproductive System Hx Reproductive Disorders: No Sexually Transmitted Disease: No HIV/AIDS: No Female Reproductive Disorders: Denies Genitourinary No Gastrointestinal Yes Gastroesophageal Reflux, Chronic Constipation Musculoskeletal Yes Scoliosis Endocrine History of Endocrine Disorders: No Cancer No Psychosocial History of Psychiatric Problem: No Integumentary History of Skin or Integumenta: No Blood Transfusions History of Blood Disorders: No Adverse Reaction to a Blood Tr: No Review of Systems Constitutional: chills, fever, malaise, weakness EENTM: see HPI Respiratory: no symptoms reported Cardiovascular: palpitations Gastrointestinal: no symptoms reported Genitourinary: see HPI, pain : No Control/STD Prophylaxis: None Musculoskeletal: no symptoms reported Skin: see HPI, change in color Psychiatric/Neurological: No Symptoms Reported Physical Exam Physical Exam Vital Signs Vital Signs Date Time Temp Pulse Resp B/P (MAP) Pulse Ox O2 Delivery O2 Flow Rate FiO2 09/28/22 06:30 36.4 69 18 92/61 (71) 99 Room Air 09/28/22 04:38 36.5 69 20 87/59 (68) 97 Room Air 09/28/22 02:34 36.5 71 18 93/61 (72) 98 Room Air 09/27/22 23:42 37.1 97 20 96/56 (69) 97 Room Air 09/27/22 21:07 38.1 108 20 110/71 (84) 99 Room Air 09/27/22 18:15 36.7 99 18 92/62 (72) 99 Room Air 09/27/22 16:25 38.3 112 18 103/64 (77) 95 Room Air 09/27/22 15:30 38.3 108 18 92/62 (72) 98 Room Air 09/27/22 15:02 39.1 09/27/22 15:00 39.1 106 20 94/61 (72) 98 Room Air 09/27/22 14:00 39.3 114 20 92/61 (71) 98 Room Air 09/27/22 13:30 39.3 112 20 112/77 (89) 100 Room Air 09/27/22 13:30 39.8 112 20 100 Room Air 09/27/22 13:16 37.1 114 16 114/74 98 Room Air 09/27/22 11:52 37.1 129 16 99/72 (81) 96 Room Air I & O 09/28/22 07:00 Intake Total 3500 ml Output Total 1200 ml Balance 2300 ml Capillary Refill : Less Than 3 Seconds Labs Laboratory Tests 09/27/22 12:15: White Blood Count 15.7H, Red Blood Count 3.81, Hemoglobin 10.8L, Hematocrit 33L, Mean Corpuscular Volume 86, Mean Corpuscular Hemoglobin 28, Mean Corpuscular Hemoglobin Concent 33, Red Cell Distribution Width 13.8, Platelet Count 360, Mean Platelet Volume 9.2, Immature Granulocyte % (Auto) 1, Neutrophils (%) (Auto) 85H, Lymphocytes (%) (Auto) 11L, Monocytes (%) (Auto) 3, Eosinophils (%) (Auto) 0, Basophils (%) (Auto) 0, Neutrophils # (Auto) 13.4H, Lymphocytes # (Auto) 1.7, Monocytes # (Auto) 0.4, Eosinophils # (Auto) 0.0, Basophils # (Auto) 0.1, Immature Granulocyte # (Auto) 0.1, Neutrophils % (Manual) 83, Lymphocytes % (Manual) 9, Monocytes % (Manual) 3, Band Neutrophils 5, Blood Morphology Comment NORMAL, Sodium Level 137, Potassium Level 3.7, Chloride Level 106, Carbon Dioxide Level 21, Anion Gap 10, Blood Urea Nitrogen 11, Creatinine 0.82, Estimat Glomerular Filtration Rate 102, BUN/Creatinine Ratio 13, Glucose Level 95, Lactic Acid Level 0.88, Calcium Level 8.7, Corrected Calcium 9.1, Total Bilirubin 0.4, Aspartate Amino Transf (AST/SGOT) 14, Alanine Aminotransferase (ALT/SGPT) 15, Alkaline Phosphatase 81, Total Protein 6.5, Albumin 3.5 09/27/22 13:04: Urine Color YELLOW, Urine Clarity SL CLOUDY, Urine pH 8.5, Urine Specific [place] 1.010L, Urine Protein 1+H, Urine Glucose (UA) NEGATIVE, Urine Ketones NEGATIVE, Urine Nitrite NEGATIVE, Urine Bilirubin NEGATIVE, Urine Urobilinogen 0.2, Urine Leukocyte Esterase 3+H, Urine RBC (Auto) NEGATIVE, Urine RBC RARE, Urine WBC 25-50H, Urine Squamous Epithelial Cells 5-10, Urine Crystals PRESENTH, Urine Amorphous Sediment FEW [place] PHOSPHATEH, Urine Bacteria MODERATEH, Urine Casts NONE, Urine Mucus SMALLH, Urine Culture Indicated YES 09/28/22 06:07: White Blood Count 9.1, Red Blood Count 3.02L, Hemoglobin 8.5#L, Hematocrit 27L, Mean Corpuscular Volume 90, Mean Corpuscular Hemoglobin 28, Mean Corpuscular Hemoglobin Concent 31L, Red Cell Distribution Width 14.2, Platelet Count 282, Me an Platelet Volume 9.8, Immature Granulocyte % (Auto) 0, Neutrophils (%) (Auto) 70, Lymphocytes (%) (Auto) 21, Monocytes (%) (Auto) 4, Eosinophils (%) (Auto) 4, Basophils (%) (Auto) 0, Neutrophils # (Auto) 6.4, Lymphocytes # (Auto) 1.9, Monocytes # (Auto) 0.4, Eosinophils # (Auto) 0.4H, Basophils # (Auto) 0.0, Immature Granulocyte # (Auto) 0.0, Sodium Level 140, Potassium Level 3.8, Chloride Level 113H, Carbon Dioxide Level 20L, Anion Gap 7, Blood Urea Nitrogen 11, Creatinine 0.77, Estimat Glomerular Filtration Rate 110, BUN/Creatinine Ratio 14, Glucose Level 92, Calcium Level 8.1L, Corrected Calcium 9.1, Total Bilirubin 0.3, Aspartate Amino Transf (AST/SGOT) 14, Alanine Aminotransferase (ALT/SGPT) 15, Alkaline Phosphatase 73, Total Protein 5.3L, Albumin 2.8L Microbiology 09/27/22 Wet Prep - Final, Complete General Appearance: Mild Distress Respiratory: Lungs Clear, Normal Breath Sounds Cardiovascular: No Edema, Tachycardia Abdominal: normal bowel sounds, non tender, soft Gynecology/General: Other (vaginal discharge) Labia: Bilateral, WNL Vagina: Discharge (yellow/green and frothy) Cervix: WNL Uterus: Enlarged (consistent with 3wk pp) Ovaries: Bilateral, WNL Pelvic Exam: normal external exam, discharge (yellow/green and frothy no bleeding.) Extremity: Normal Inspection, Normal Range of Motion, Non Tender, No Calf Tenderness, No Pedal Edema Assessment/Plan Assessment and Plan Problems: (1) Mastitis Assessment & Plan: IV ATBX (2) Vaginal discharge Assessment & Plan: STD cx pending PO Flagyl (3) Sepsis Onset Date: ~ 09/2022 Qualifiers: Qualified Codes: A41.9 - Sepsis, unspecified organism Admission Diagnosis Admission Status: Observation Clinical Quality Measures Admission Status Admission Status: Observation DVT/VTE Risk/Contraindication: VTE Addressed: Yes VTE Present on Admission: No Sepsis: Within 3hrs of presentation: Admin fluids, Admin ABX, Blood cultures prior to A BX's Copy Copies To 1: TERESITA ROSS VICTORIA A DO September 27, 2022 13:57
[2022-09-27] MEDS: NS IV 1000 ML 1,000 ML IV SCH ×2 (14:11→21:11)
[2022-09-27] MEDS: ACETAMINOPHEN 500 MG TAB (TYLENOL) PO PRN ×2 (15:02→21:34)
[2022-09-27] MEDS: PIPERACILLIN SODIUM/TAZOBACTAM 4.5 GM in NS (IVPB) 100 ML IV SCH (18:27)
[2022-09-27] MEDS ORDERED: metroNIDAZOLE 500 MG (FLAGYL) TAB PO SCH (21:00)
[2022-09-27] MEDS ORDERED: metroNIDAZOLE 500MG/100ML IVPB 100 ML IV SCH (21:00)
[2022-09-27] MEDS: metroNIDAZOLE 500 MG (FLAGYL) TAB PO SCH (21:11)
[2022-09-27] MEDS: IBUPROFEN 600 MG (MOTRIN) TAB PO SCH (21:11)
[2022-09-28] VITALS (10 sets, daily range): BP systolic 87–109; BP diastolic 52–78
[2022-09-28] MEDS: PIPERACILLIN SODIUM/TAZOBACTAM 4.5 GM in NS (IVPB) 100 ML IV SCH ×3 (02:34→18:41)
[2022-09-28] MEDS: IBUPROFEN 600 MG (MOTRIN) TAB PO SCH ×4 (04:38→23:03)
[2022-09-28] MEDS: NS IV 1000 ML 1,000 ML IV SCH ×3 (04:38→19:45)
[2022-09-28 06:57] LABS: BASOPHILS % (AUTO) 0 % (0-10); EOSINOPHILS # (AUTO) 0.4 10^3/uL (0.0-0.3); EOSINOPHILS % (AUTO) 4 % (0-10); HEMATOCRIT 27 % (35-52); HEMOGLOBIN 8.5 g/dL (11.5-16.0); LYMPHOCYTES # (AUTO) 1.9 10^3/uL (1.0-4.0); LYMPHOCYTES % (AUTO) 21 % (12-44); MEAN CORPUSCULAR HEMOGLOBIN 28 pg (25-34); MEAN CORPUSCULAR HGB CONC 31 g/dL (32-36); MEAN CORPUSCULAR VOLUME 90 fL (80-99); MEAN PLATELET VOLUME 9.8 fL (9.0-12.2); MONOCYTES # (AUTO) 0.4 10^3/uL (0.0-1.0); MONOCYTES % (AUTO) 4 % (0-12); NEUTROPHILS # (AUTO) 6.4 10^3/uL (1.8-7.8); NEUTROPHILS % (AUTO) 70 % (42-75); PLATELET COUNT 282 10^3/uL (130-400); WHITE BLOOD COUNT 9.1 10^3/uL (4.3-11.0)
[2022-09-28 07:07] LABS: ALBUMIN 2.8 GM/DL (3.2-4.5); BILIRUBIN,TOTAL 0.3 MG/DL (0.1-1.0); CALCIUM 8.1 MG/DL (8.5-10.1); CREATININE SERUM 0.77 MG/DL (0.60-1.30); POTASSIUM 3.8 MMOL/L (3.6-5.0); TOTAL PROTEIN 5.3 GM/DL (6.4-8.2)
--- NOTE | 2022-09-28 08:26 | Progress Note ---
Standard Progress Note Progress Notes/Assess & Plan Date Seen by a Provider: September 28, 2022 Time Seen by a Provider: 08:10 Progress/Assessment & Plan Patient is on day#2 ATBx States that she is feeling better. last fever last night (38C) States that she is still hurting in breast. She is pumping every 2hrs She has noticed some decrease in milk supply VSS AF HRRR LCTAB Breasts Left normal Right decreased erythema and induration less tender compared to yesterday ABD soft NT ND Uterus firm midline well below umbilicus Lochia minimal EXT intact x4 no c/e/e/e A/P Mastitis Continue IV ATBX If AFebrile for 48h then will DC to home Vaginal discharge-improved. Final Diagnosis Mastitis Continue IV ATBX If AFebrile for 48h then will DC to home Vaginal discharge-improved. Focused Exam Lactate Level 09/27/22 12:15: Lactic Acid Level 0.88 Diagnosis/Problems Diagnosis/Problems (1) Mastitis Assessment & Plan: IV ATBX Day #2 (2) Vaginal discharge Assessment & Plan: CX neg improved. (3) Sepsis Onset Date: ~ 09/2022 Assessment & Plan: on ATBx Qualifiers: Qualified Codes: A41.9 - Sepsis, unspecified organism RAJAT DIANA DO September 28, 2022 08:26
[2022-09-28] MEDS ORDERED: CEPH500T PO (09:27)
[2022-09-28] MEDS: metroNIDAZOLE 500 MG (FLAGYL) TAB PO SCH ×2 (10:58→21:12)
[2022-09-29] MEDS: NS IV 1000 ML 1,000 ML IV SCH ×2 (02:38→09:34)
[2022-09-29] MEDS: PIPERACILLIN SODIUM/TAZOBACTAM 4.5 GM in NS (IVPB) 100 ML IV SCH ×2 (02:38→09:34)
[2022-09-29 02:39] VITALS: BP 110/76
[2022-09-29] MEDS: IBUPROFEN 600 MG (MOTRIN) TAB PO SCH (04:18)
[2022-09-29 05:27] LABS: BASOPHILS % (AUTO) 1 % (0-10); EOSINOPHILS # (AUTO) 0.5 10^3/uL (0.0-0.3); EOSINOPHILS % (AUTO) 9 % (0-10); HEMATOCRIT 27 % (35-52); HEMOGLOBIN 8.6 g/dL (11.5-16.0); LYMPHOCYTES # (AUTO) 2.6 10^3/uL (1.0-4.0); LYMPHOCYTES % (AUTO) 43 % (12-44); MEAN CORPUSCULAR HEMOGLOBIN 29 pg (25-34); MEAN CORPUSCULAR HGB CONC 32 g/dL (32-36); MEAN CORPUSCULAR VOLUME 90 fL (80-99); MONOCYTES # (AUTO) 0.5 10^3/uL (0.0-1.0); MONOCYTES % (AUTO) 8 % (0-12); NEUTROPHILS # (AUTO) 2.4 10^3/uL (1.8-7.8); NEUTROPHILS % (AUTO) 40 % (42-75); PLATELET COUNT 306 10^3/uL (130-400)
[2022-09-29 05:46] LABS: ALBUMIN 2.7 GM/DL (3.2-4.5); POTASSIUM 4.1 MMOL/L (3.6-5.0)
[2022-09-29 05:47] LABS: CALCIUM 8.1 MG/DL (8.5-10.1)
[2022-09-29 05:49] LABS: TOTAL PROTEIN 5.2 GM/DL (6.4-8.2)
[2022-09-29 05:50] LABS: BILIRUBIN,TOTAL 0.2 MG/DL (0.1-1.0)
[2022-09-29 05:52] LABS: CREATININE SERUM 0.64 MG/DL (0.60-1.30)
--- NOTE | 2022-09-29 07:11 | Progress Note ---
Standard Progress Note Progress Notes/Assess & Plan Date Seen by a Provider: September 29, 2022 Time Seen by a Provider: 06:55 Progress/Assessment & Plan Patient is on day#3 ATBx States that she is feeling better.Last fever has been almost 48 hours ago. She states that she still having some pain in her breast but it is feeling much better. She has also had a decrease in milk supply VSS AF HRRR LCTAB Breasts Left normal Erythema has resolved. There are some slight induration but decreased and less tender compared to yesterday ABD soft NT ND Uterus firm midline well below umbilicus Lochia minimal EXT intact x4 no c/e/e/e A/P Mastitis Has been afebrile for almost 48 hours Will DC to home Continue antibiotics p.o. Rx sent Follow-up in 1 week Focused Exam Lactate Level 09/27/22 12:15: Lactic Acid Level 0.88 Diagnosis/Problems Diagnosis/Problems (1) Mastitis Assessment & Plan: IV ATBX Day #3 Symptoms have improved. Will DC to home DC instructions given Rx for antibiotics sent (2) Vaginal discharge Assessment & Plan: Resolved (3) Sepsis Onset Date: ~ 09/2022 Assessment & Plan: Resolved Qualifiers: Qualified Codes: A41.9 - Sepsis, unspecified organism RAJAT DIANA DO September 29, 2022 07:11
--- NOTE | 2022-09-29 07:15 | Short Stay Summary ---
Discharge Summary Hospital Course Was the Problem List Reviewed?: Yes Problems/Dx: (1) Mastitis Assessment & Plan: IV ATBX Day #3 DC to home Oral antibiotics called in and continue Follow-up in 1 week (2) Vaginal discharge Assessment & Plan: Resolved (3) Sepsis Assessment & Plan: Resolved Qualifiers: Qualified Codes: A41.9 - Sepsis, unspecified organism Final Diagnosis: Mastitis Hospital Course Date of Admission: September 27, 2022 at 13:25 Admission Diagnosis : Family Physician/Provider: Patsy Prabhakar Date of Discharge: 09/28/22 Discharge Diagnosis:Mastitis Hospital Course: Patient was admitted for elevated temperature of 102And rapid heartbeat. Upon admission to the emergency room it was noted that she also had a vaginal discharge and had generalized tenderness throughout and had a temperature of 102 and a pulse of 135. She admitted for IV hydration and IV antibiotics. She received IV antibiotics and did very well her fever came down within 24 hours and remained afebrile for 48 hours. She was discharged home with continued oral antibiotics and instructions to follow-up in 1 week. Labs and Pending Lab Test: Laboratory Tests 09/27/22 12:15: White Blood Count 15.7H, Red Blood Count 3.81, Hemoglobin 10.8L, Hematocrit 33L, Mean Corpuscular Volume 86, Mean Corpuscular Hemoglobin 28, Mean Corpuscular Hemoglobin Concent 33, Red Cell Distribution Width 13.8, Platelet Count 360, Mean Platelet Volume 9.2, Immature Granulocyte % (Auto) 1, Neutrophils (%) (Auto) 85H, Lymphocytes (%) (Auto) 11L, Monocytes (%) (Auto) 3, Eosinophils (%) (Auto) 0, Basophils (%) (Auto) 0, Neutrophils # (Auto) 13.4H, Lymphocytes # (Auto) 1.7, Monocytes # (Auto) 0.4, Eosinophils # (Auto) 0.0, Basophils # (Auto) 0.1, Immature Granulocyte # (Auto) 0.1, Neutrophils % (Manual) 83, Lymphocytes % (Manual) 9, Monocytes % (Manual) 3, Band Neutrophils 5, Blood Morphology Comment NORMAL, Sodium Level 137, Potassium Level 3.7, Chloride Level 106, Carbon Dioxide Level 21, Anion Gap 10, Blood Urea Nitrogen 11, Creatinine 0.82, Estimat Glomerular Filtration Rate 102, BUN/Creatinine Ratio 13, Glucose Level 95, Lactic Acid Level 0.88, Calcium Level 8.7, Corrected Calcium 9.1, Total Bilirubin 0.4, Aspartate Amino Transf (AST/SGOT) 14, Alanine Aminotransferase (ALT/SGPT) 15, Alkaline Phosphatase 81, Total Protein 6.5, Albumin 3.5 09/27/22 13:04: Urine Color YELLOW, Urine Clarity SL CLOUDY, Urine pH 8.5, Urine Specific [place] 1.010L, Urine Protein 1+H, Urine Glucose (UA) NEGATIVE, Urine Ketones NEGATIVE, Urine Nitrite NEGATIVE, Urine Bilirubin NEGATIVE, Urine Urobilinogen 0.2, Urine Leukocyte Esterase 3+H, Urine RBC (Auto) NEGATIVE, Urine RBC RARE, Urine WBC 25-50H, Urine Squamous Epithelial Cells 5-10, Urine Crystals PRESENTH, Urine Amorphous Sediment FEW FRED[place]ICK PHOSPHATEH, Urine Bacteria MODERATEH, Urine Casts NONE, Urine Mucus SMALLH, Urine Culture Indicated YES, Urine Neisseria gonorrhoeae RNA [Pending] 09/28/22 06:07: White Blood Count 9.1, Red Blood Count 3.02L, Hemoglobin 8.5#L, Hematocrit 27L, Mean Corpuscular Volume 90, Mean Corpuscular Hemoglobin 28, Mean Corpuscular Hemoglobin Concent 31L, Red Cell Distribution Width 14.2, Platelet Count 282, Mean Platelet Volume 9.8, Immature Granulocyte % (Auto) 0, Neutrophils (%) (Auto) 70, Lymphocytes (%) (Auto) 21, Monocytes (%) (Auto) 4, Eosinophils (%) (Auto) 4, Basophils (%) (Auto) 0, Neutrophils # (Auto) 6.4, Lymphocytes # (Auto) 1.9, Monocytes # (Auto) 0.4, Eosinophils # (Auto) 0.4H, Basophils # (Auto) 0.0, Immature Granulocyte # (Auto) 0.0, Sodium Level 140, Potassium Level 3.8, Chloride Level 113H, Carbon Dioxide Level 20L, Anion Gap 7, Blood Urea Nitrogen 11, Creatinine 0.77, Estimat Glomerular Filtration Rate 110, BUN/Creatinine Ratio 14, Glucose Level 92, Calcium Level 8.1L, Corrected Calcium 9.1, Total Bilirubin 0.3, Aspartate Amino Transf (AST/SGOT) 14, Alanine Aminotransferase (ALT/SGPT) 15, Alkaline Phosphatase 73, Total Protein 5.3L, Albumin 2.8L Microbiology 09/27/22 Wet Prep - Final, Complete Home Meds Active Cephalexin 500 Mg Tablet 500 Mg PO QID 7 Days Dibucaine 1 % Oint 1 Gm TOP UD PRN Dermoplast Pain Relieving Hamel (Benzocaine/Menthol) 20 %-0.5 % Aerosol 56 Ea TP UD PRN Docusate Sodium 100 Mg Capsule 100 Mg PO BID PRN Acetaminophen 500 Mg Tablet 1,000 Mg PO Q6H Ibu (Ibuprofen) 600 Mg Tablet 600 Mg PO Q6H Ferosul (Ferrous Sulfate) 325 Mg (65 Mg Iron) Tablet 325 Mg PO DAILY Reported Tablet (Pnv95/Ferrous Fumarate/FA) 28 Mg Iron-800 Mcg Tablet 1 Each PO DAILY Pepcid (Famotidine) 40 Mg Tablet 40 Mg PO DAILY Zyrtec (Cetirizine HCl) 10 Mg Capsule 1 Tab PO DAILY Ventolin Hfa (Albuterol Sulfate) 1 Puff Puff 2 Puff INH Q6H PRN 1 PUFF = 90 MCG Assessment/Pt Instructions DC to home Rx sent for oral antibiotics Follow-up in 1 week Discharge Physical Examination General Appearance: Alert, Oriented X3 Cardiovascular: Regular Rate, Normal S1, Normal S2 Abdominal: Normal Bowel Sounds, Soft, No Tenderness Extremities: No Clubbing, No Cyanosis, No Edema Skin: No Rashes, No Breakdown Neuro: Normal Gait, Normal Speech Psych/Mental Status: Mental Status NL Allergies: Coded Allergies: morphine (Verified Adverse Reaction, Mild, SKIN HYPERSENSITIVITY, 09/26/21) Discharge Summary Date of Admission September 27, 2022 at 13:25 Date of Discharge Discharge Diagnosis (1) Mastitis Assessment & Plan: Afebrile for 48 hours DC to home DC instructions given Rx for oral antibiotics (2) Vaginal discharge Assessment & Plan: Resolved (3) Sepsis Onset Date: ~ 09/2022 Assessment & Plan: Resolved Qualifiers: Qualified Codes: A41.9 - Sepsis, unspecified organism Clinical Quality Measures DVT/VTE Risk/Contraindication: VTE Addressed: Yes VTE Present on Admission: RAJAT Mejia DO September 28, 2022 09:27
[2022-09-29 08:00] VITALS: BP 133/95
[2022-09-29] MEDS: metroNIDAZOLE 500 MG (FLAGYL) TAB PO SCH (09:33)
== END 2022-09-29 11:00 | disposition home or self-care (01) | DRG 776 ==
LOC: EDUNIT# 11:45 → ER 11:47 → WS 13:25
PROVIDERS: ADMIT Obstetrics & Gynecology; ATTEND Obstetrics & Gynecology
DX: O85 Puerperal sepsis (principal); O99.355 Diseases of the nervous system complicating the puerperium; O91.22 Nonpurulent mastitis associated with the puerperium; G43.909 Migraine, unspecified, not intractable, without status migrainosus; K21.9 Gastro-esophageal reflux disease without esophagitis; M41.9 Scoliosis, unspecified; N89.8 Other specified noninflammatory disorders of vagina; O99.63 Diseases of the digestive system complicating the puerperium; O99.893 Other specified diseases and conditions complicating puerperium
CPT/HCPCS: 36415; 80053; 81000; 83605; 85007; 85025; 85027; 87040; 87088; 87210; 87591

== ENCOUNTER → 2023-01-04 | Outpatient (RCR) | payer MEDICAID ==
[~2023-01-04] MED LIST changes: +CEPH500T PO
== END | disposition home or self-care (01) ==
PROVIDERS: ATTEND Nurse Practitioner Gerontology
DX: M47.816 Spondylosis without myelopathy or radiculopathy, lumbar region (principal)